=== PATIENT | female | born 1945 | race Caucasian/White ===

== ENCOUNTER 2017-12-05 16:01 | Outpatient (REF) | payer MEDICARE, MEDICAID, SELFPAY ==
[2017-12-05 17:26] LABS: Anion Gap 10.7 mmol/L (3-11); CO2 22.3 mmol/L (21.0-32.0); Calcium 8.4 mg/dL (8.5-10.1); Chloride 104 mmol/L (98-107); Estimated GFR 9.41 (mL/min/1.73m2); Glucose 285 mg/dL (70-100); Potassium 4.7 mmol/L (3.5-5.1); Sodium 137 mmol/L (136-145)
[2017-12-05 18:14] LABS: BUN 85 mg/dL (7-18); CREATININE 4.57 mg/dL (0.55-1.02)
== END 2017-12-05 16:02 ==
LOC: LBN 16:01
PROVIDERS: PCP Student in an Organized Health Care Education/Training Program; Visit Provider Family Medicine
DX: N18.9 Chronic kidney disease, unspecified (principal); E78.5 Hyperlipidemia, unspecified; E11.9 Type 2 diabetes mellitus without complications; E87.5 Hyperkalemia; I10 Essential (primary) hypertension
CPT/HCPCS: 80048

== ENCOUNTER 2017-12-12 16:09 | Outpatient (REF) | payer MEDICARE, MEDICAID, SELFPAY ==
[2017-12-12 19:10] LABS: Anion Gap 13.6 mmol/L (3-11); CO2 21.4 mmol/L (21.0-32.0); Calcium 8.3 mg/dL (8.5-10.1); Chloride 104 mmol/L (98-107); Estimated GFR 9.91 (mL/min/1.73m2); Glucose 197 mg/dL (70-100); Potassium 4.8 mmol/L (3.5-5.1); Sodium 139 mmol/L (136-145)
[2017-12-12 19:19] LABS: BUN 92 mg/dL (7-18); CREATININE 4.37 mg/dL (0.55-1.02)
== END 2017-12-12 16:10 ==
LOC: LBN 16:09
PROVIDERS: PCP Student in an Organized Health Care Education/Training Program; Visit Provider Family Medicine
DX: M62.81 Muscle weakness (generalized) (principal); N18.9 Chronic kidney disease, unspecified; E78.5 Hyperlipidemia, unspecified; E11.9 Type 2 diabetes mellitus without complications
CPT/HCPCS: 80048

== ENCOUNTER 2017-12-20 16:21 | Outpatient (REF) | payer MEDICARE, MEDICAID, SELFPAY ==
[2017-12-20 18:50] LABS: Anion Gap 11.8 mmol/L (3-11); CO2 22.2 mmol/L (21.0-32.0); Calcium 8.5 mg/dL (8.5-10.1); Chloride 104 mmol/L (98-107); Estimated GFR 10.02 (mL/min/1.73m2); Glucose 255 mg/dL (70-100); Potassium 5.2 mmol/L (3.5-5.1); Sodium 138 mmol/L (136-145)
[2017-12-20 19:45] LABS: BUN 95 mg/dL (7-18)
[2017-12-20 19:46] LABS: CREATININE 4.33 mg/dL (0.55-1.02)
== END 2017-12-20 16:22 ==
LOC: LBN 16:21
PROVIDERS: PCP Student in an Organized Health Care Education/Training Program; Visit Provider Family Medicine
DX: N18.9 Chronic kidney disease, unspecified (principal); E78.5 Hyperlipidemia, unspecified; E11.9 Type 2 diabetes mellitus without complications; E87.5 Hyperkalemia; I10 Essential (primary) hypertension; D64.9 Anemia, unspecified
CPT/HCPCS: 80048

== ENCOUNTER 2017-12-24 15:20 | Outpatient (REF) | payer MEDICARE, MEDICAID, SELFPAY ==
[2017-12-24 17:13] LABS: Calcium 8.4 mg/dL (8.5-10.1); Chloride 105 mmol/L (98-107); Glucose 299 mg/dL (70-100); Potassium 5.4 mmol/L (3.5-5.1); Sodium 137 mmol/L (136-145)
[2017-12-24 17:21] LABS: BUN 95 mg/dL (7-18)
[2017-12-24 17:22] LABS: CREATININE 4.19 mg/dL (0.55-1.02)
== END 2017-12-24 15:21 ==
LOC: LBN 15:20
PROVIDERS: PCP Student in an Organized Health Care Education/Training Program; Visit Provider Family Medicine
DX: N17.9 Acute kidney failure, unspecified (principal); E78.5 Hyperlipidemia, unspecified; E11.9 Type 2 diabetes mellitus without complications; I10 Essential (primary) hypertension
CPT/HCPCS: 80048

== ENCOUNTER 2017-12-26 16:36 | Outpatient (REF) | payer MEDICARE, MEDICAID, SELFPAY ==
[2017-12-26 17:46] LABS: Anion Gap 14.1 mmol/L (3-11); CO2 20.9 mmol/L (21.0-32.0); Calcium 8.8 mg/dL (8.5-10.1); Chloride 106 mmol/L (98-107); Estimated GFR 10.73 (mL/min/1.73m2); Glucose 171 mg/dL (70-100); Potassium 4.8 mmol/L (3.5-5.1); Sodium 141 mmol/L (136-145)
[2017-12-26 17:54] LABS: BUN 93 mg/dL (7-18); CREATININE 4.08 mg/dL (0.55-1.02)
== END 2017-12-26 16:37 ==
LOC: LBN 16:36
PROVIDERS: PCP Student in an Organized Health Care Education/Training Program; Visit Provider Family Medicine
DX: N18.9 Chronic kidney disease, unspecified (principal)
CPT/HCPCS: 80048

== ENCOUNTER 2018-01-02 16:45 | Outpatient (REF) | payer MEDICARE, MEDICAID, SELFPAY ==
[2018-01-02 19:48] LABS: Anion Gap 11.3 mmol/L (3-11); CO2 21.7 mmol/L (21.0-32.0); Calcium 8.7 mg/dL (8.5-10.1); Chloride 106 mmol/L (98-107); Estimated GFR 10.23 (mL/min/1.73m2); Glucose 236 mg/dL (70-100); Sodium 139 mmol/L (136-145)
[2018-01-02 20:01] LABS: BUN 106 mg/dL (7-18)
[2018-01-03 15:22] LABS: CREATININE 4.25 mg/dL (0.55-1.02)
== END 2018-01-02 16:46 ==
LOC: LBN 16:45
PROVIDERS: PCP Student in an Organized Health Care Education/Training Program; Visit Provider Family Medicine
DX: N18.9 Chronic kidney disease, unspecified (principal); E78.5 Hyperlipidemia, unspecified; I10 Essential (primary) hypertension; E11.9 Type 2 diabetes mellitus without complications
CPT/HCPCS: 80048

== ENCOUNTER 2018-01-09 16:50 | Outpatient (REF) | payer MEDICARE, MEDICAID, SELFPAY ==
[2018-01-09 17:44] LABS: Anion Gap 9.2 mmol/L (3-11); CO2 20.8 mmol/L (21.0-32.0); Calcium 8.5 mg/dL (8.5-10.1); Chloride 103 mmol/L (98-107); Estimated GFR 10.23 (mL/min/1.73m2); Glucose 302 mg/dL (70-100); Potassium 5.8 mmol/L (3.5-5.1); Sodium 133 mmol/L (136-145)
[2018-01-09 17:54] LABS: CREATININE 4.25 mg/dL (0.55-1.02)
[2018-01-09 17:55] LABS: BUN 104 mg/dL (7-18)
== END 2018-01-09 17:10 ==
LOC: LBN 16:50
PROVIDERS: PCP Student in an Organized Health Care Education/Training Program; Visit Provider Family Medicine
DX: N18.9 Chronic kidney disease, unspecified (principal)
CPT/HCPCS: 80048

== ENCOUNTER 2018-01-12 15:28 | Outpatient (REF) | payer MEDICARE, MEDICAID, SELFPAY ==
[2018-01-12 16:03] LABS: Potassium 5.5 mmol/L (3.5-5.1)
== END 2018-01-12 15:48 ==
LOC: LBN 15:28
PROVIDERS: PCP Student in an Organized Health Care Education/Training Program; Visit Provider Nurse Practitioner Family
DX: E87.5 Hyperkalemia (principal)
CPT/HCPCS: 84132

== ENCOUNTER 2018-01-14 14:47 | Outpatient (REF) | payer MEDICARE, MEDICAID, SELFPAY ==
[2018-01-14 16:36] LABS: Potassium 4.8 mmol/L (3.5-5.1)
== END 2018-01-14 15:07 ==
LOC: LBN 14:47
PROVIDERS: PCP Student in an Organized Health Care Education/Training Program; Visit Provider Family Medicine
DX: E11.9 Type 2 diabetes mellitus without complications (principal); N18.9 Chronic kidney disease, unspecified; E87.5 Hyperkalemia
CPT/HCPCS: 84132

== ENCOUNTER 2018-01-17 17:31 | Outpatient (REF) | payer MEDICARE, MEDICAID, SELFPAY ==
[2018-01-17 20:08] LABS: Calcium 8.4 mg/dL (8.5-10.1); Chloride 106 mmol/L (98-107); Estimated GFR 10.29 (mL/min/1.73m2); Glucose 262 mg/dL (70-100); Potassium 5.3 mmol/L (3.5-5.1); Sodium 140 mmol/L (136-145)
[2018-01-17 20:42] LABS: BUN 108 mg/dL (7-18); CREATININE 4.23 mg/dL (0.55-1.02)
== END 2018-01-17 17:51 ==
LOC: LBN 17:31
PROVIDERS: Family Medicine; PCP Student in an Organized Health Care Education/Training Program; Visit Provider Student in an Organized Health Care Education/Training Program
DX: N18.9 Chronic kidney disease, unspecified (principal); D64.9 Anemia, unspecified; E78.5 Hyperlipidemia, unspecified; I10 Essential (primary) hypertension; E87.5 Hyperkalemia; E11.9 Type 2 diabetes mellitus without complications
CPT/HCPCS: 80048

== ENCOUNTER 2018-01-20 15:19 | Outpatient (REF) | payer MEDICARE, MEDICAID, SELFPAY ==
[2018-01-20 22:29] LABS: Anion Gap 11.6 mmol/L (3-11); CO2 20.4 mmol/L (21.0-32.0); Calcium 8.1 mg/dL (8.5-10.1); Chloride 106 mmol/L (98-107); Estimated GFR 9.29 (mL/min/1.73m2); Glucose 203 mg/dL (70-100); Sodium 138 mmol/L (136-145)
[2018-01-20 22:37] LABS: BUN 109 mg/dL (7-18); CREATININE 4.62 mg/dL (0.55-1.02)
== END 2018-01-20 15:39 ==
LOC: LBN 15:19
PROVIDERS: PCP Student in an Organized Health Care Education/Training Program; Visit Provider Family Medicine
DX: D64.9 Anemia, unspecified (principal); N17.9 Acute kidney failure, unspecified; E78.5 Hyperlipidemia, unspecified; E87.5 Hyperkalemia; I10 Essential (primary) hypertension
CPT/HCPCS: 80048

== ENCOUNTER 2018-01-23 16:27 | Outpatient (REF) | payer MEDICARE, MEDICAID, SELFPAY ==
[2018-01-23 17:28] LABS: Anion Gap 11.1 mmol/L (3-11); CO2 21.9 mmol/L (21.0-32.0); Calcium 8.2 mg/dL (8.5-10.1); Chloride 104 mmol/L (98-107); Estimated GFR 9.31 (mL/min/1.73m2); Glucose 162 mg/dL (70-100); Potassium 5.1 mmol/L (3.5-5.1); Sodium 137 mmol/L (136-145)
[2018-01-23 17:32] LABS: BUN 116 mg/dL (7-18)
== END 2018-01-23 16:47 ==
LOC: LBN 16:27
PROVIDERS: PCP Student in an Organized Health Care Education/Training Program; Visit Provider Family Medicine
DX: D64.9 Anemia, unspecified (principal); N18.9 Chronic kidney disease, unspecified; E78.5 Hyperlipidemia, unspecified; E11.9 Type 2 diabetes mellitus without complications; I10 Essential (primary) hypertension
CPT/HCPCS: 80048

== ENCOUNTER 2018-01-27 16:32 | Outpatient (REF) | payer MEDICARE, MEDICAID, SELFPAY ==
[2018-01-27 17:32] LABS: Anion Gap 14.8 mmol/L (3-11); CO2 20.2 mmol/L (21.0-32.0); Calcium 8.5 mg/dL (8.5-10.1); Chloride 102 mmol/L (98-107); Estimated GFR 9.68 (mL/min/1.73m2); Glucose 335 mg/dL (70-100); Potassium 5.3 mmol/L (3.5-5.1); Sodium 137 mmol/L (136-145)
[2018-01-27 17:44] LABS: BUN 104 mg/dL (7-18); CREATININE 4.45 mg/dL (0.55-1.02)
== END 2018-01-27 16:52 ==
LOC: LBN 16:32
PROVIDERS: PCP Student in an Organized Health Care Education/Training Program; Visit Provider Family Medicine
DX: N18.9 Chronic kidney disease, unspecified (principal); D64.9 Anemia, unspecified; E11.9 Type 2 diabetes mellitus without complications; I10 Essential (primary) hypertension; E78.5 Hyperlipidemia, unspecified
CPT/HCPCS: 80048

== ENCOUNTER 2018-01-30 13:15 | Outpatient (REF) | payer MEDICARE, MEDICAID, SELFPAY ==
[2018-01-30 15:25] LABS: Potassium 5.1 mmol/L (3.5-5.1)
[2018-01-30 21:39] LABS: Calcium 8.8 mg/dL (8.5-10.1); Glucose 104 mg/dL (70-100)
[2018-01-30 21:40] LABS: BUN 99 mg/dL (7-18); CREATININE 4.27 mg/dL (0.55-1.02); Estimated GFR 10.15 (mL/min/1.73m2); Sodium 140 mmol/L (136-145)
[2018-01-30 21:41] LABS: Anion Gap 12.8 mmol/L (3-11); CO2 21.2 mmol/L (21.0-32.0); Chloride 106 mmol/L (98-107)
== END 2018-01-30 13:35 ==
LOC: LBN 13:15
PROVIDERS: PCP Student in an Organized Health Care Education/Training Program; Visit Provider Family Medicine
DX: E11.9 Type 2 diabetes mellitus without complications (principal); E78.5 Hyperlipidemia, unspecified; I10 Essential (primary) hypertension; D64.9 Anemia, unspecified; N18.9 Chronic kidney disease, unspecified
CPT/HCPCS: 80048; 84132

== ENCOUNTER 2018-02-11 12:21 | Outpatient (REF) | payer MEDICARE, MEDICAID, SELFPAY ==
[2018-02-11 13:18] LABS: Anion Gap 12.1 mmol/L (3-11); CO2 20.9 mmol/L (21.0-32.0); Calcium 8.9 mg/dL (8.5-10.1); Chloride 109 mmol/L (98-107); Estimated GFR 9.06 (mL/min/1.73m2); Glucose 109 mg/dL (70-100); Sodium 142 mmol/L (136-145)
[2018-02-11 13:24] LABS: BUN 112 mg/dL (7-18); CREATININE 4.71 mg/dL (0.55-1.02)
== END 2018-02-11 12:41 ==
LOC: LBN 12:21
PROVIDERS: PCP Student in an Organized Health Care Education/Training Program; Visit Provider Family Medicine
DX: R53.83 Other fatigue (principal); N18.9 Chronic kidney disease, unspecified
CPT/HCPCS: 80048

== ENCOUNTER 2018-02-19 07:56 | Outpatient (REF) | payer MEDICARE, MEDICAID, SELFPAY ==
[2018-02-19 12:43] LABS: Anion Gap 13.8 mmol/L (3-11); CO2 20.2 mmol/L (21.0-32.0); Calcium 8.9 mg/dL (8.5-10.1); Chloride 110 mmol/L (98-107); Estimated GFR 10.12 (mL/min/1.73m2); Glucose 90 mg/dL (70-100); Potassium 5.7 mmol/L (3.5-5.1); Sodium 144 mmol/L (136-145)
[2018-02-19 13:38] LABS: BUN 102 mg/dL (7-18)
[2018-02-19 13:39] LABS: CREATININE 4.28 mg/dL (0.55-1.02)
== END 2018-02-19 08:16 ==
LOC: LBN 07:56
PROVIDERS: PCP Student in an Organized Health Care Education/Training Program; Visit Provider Family Medicine
DX: M62.81 Muscle weakness (generalized) (principal); I25.10 Atherosclerotic heart disease of native coronary artery without angina pectoris; E78.5 Hyperlipidemia, unspecified; E11.9 Type 2 diabetes mellitus without complications; I10 Essential (primary) hypertension
CPT/HCPCS: 80048

== ENCOUNTER 2018-02-20 14:40 | Outpatient (REF) | payer MEDICARE, MEDICAID, SELFPAY ==
[2018-02-20 15:22] LABS: Potassium 5.2 mmol/L (3.5-5.1)
== END 2018-02-20 15:00 ==
LOC: LBN 14:40
PROVIDERS: PCP Student in an Organized Health Care Education/Training Program; Visit Provider Family Medicine
DX: E78.5 Hyperlipidemia, unspecified (principal); E87.5 Hyperkalemia; I10 Essential (primary) hypertension
CPT/HCPCS: 84132

== ENCOUNTER 2018-02-25 14:31 | Outpatient (REF) | payer MEDICARE, MEDICAID, SELFPAY ==
[2018-02-25 15:05] LABS: Anion Gap 12.6 mmol/L (3-11); CO2 21.4 mmol/L (21.0-32.0); Calcium 8.5 mg/dL (8.5-10.1); Chloride 106 mmol/L (98-107); Estimated GFR 10.15 (mL/min/1.73m2); Glucose 215 mg/dL (70-100); Potassium 4.9 mmol/L (3.5-5.1); Sodium 140 mmol/L (136-145)
[2018-02-25 15:11] LABS: BUN 114 mg/dL (7-18); CREATININE 4.27 mg/dL (0.55-1.02)
== END 2018-02-25 14:51 ==
LOC: LBN 14:31
PROVIDERS: PCP Student in an Organized Health Care Education/Training Program; Visit Provider Family Medicine
DX: I10 Essential (primary) hypertension (principal); E78.5 Hyperlipidemia, unspecified; E11.9 Type 2 diabetes mellitus without complications; R53.83 Other fatigue
CPT/HCPCS: 80048

== ENCOUNTER 2018-03-11 14:20 | Outpatient (REF) | payer MEDICARE, MEDICAID, SELFPAY ==
[2018-03-11 16:30] LABS: Anion Gap 11.3 mmol/L (3-11); CO2 19.7 mmol/L (21.0-32.0); Calcium 8.6 mg/dL (8.5-10.1); Chloride 106 mmol/L (98-107); Estimated GFR 9.88 (mL/min/1.73m2); Glucose 177 mg/dL (70-100); Potassium 5.6 mmol/L (3.5-5.1); Sodium 137 mmol/L (136-145)
[2018-03-11 16:32] LABS: INR 3.2 (1.0-3.5); Prothrombin Time 29.7 sec (9.3-10.8)
[2018-03-11 16:35] LABS: BUN 100 mg/dL (7-18); CREATININE 4.37 mg/dL (0.55-1.02)
== END 2018-03-11 14:40 ==
LOC: LBN 14:20
PROVIDERS: PCP Student in an Organized Health Care Education/Training Program; Visit Provider Family Medicine
DX: I48.0 Paroxysmal atrial fibrillation (principal); Z79.01 Long term (current) use of anticoagulants; E11.9 Type 2 diabetes mellitus without complications; E78.5 Hyperlipidemia, unspecified; I10 Essential (primary) hypertension
CPT/HCPCS: 80048; 85610

== ENCOUNTER 2018-03-13 11:45 | Outpatient (REF) | payer MEDICARE, MEDICAID, SELFPAY ==
[2018-03-13 13:10] LABS: Anion Gap 11.5 mmol/L (3-11); CO2 20.5 mmol/L (21.0-32.0); Calcium 8.6 mg/dL (8.5-10.1); Chloride 108 mmol/L (98-107); Estimated GFR 9.51 (mL/min/1.73m2); Glucose 212 mg/dL (70-100); Potassium 4.8 mmol/L (3.5-5.1); Sodium 140 mmol/L (136-145)
[2018-03-13 13:37] LABS: BUN 92 mg/dL (7-18); CREATININE 4.52 mg/dL (0.55-1.02)
== END 2018-03-13 12:05 ==
LOC: LBN 11:45
PROVIDERS: PCP Student in an Organized Health Care Education/Training Program; Visit Provider Family Medicine
DX: E78.5 Hyperlipidemia, unspecified (principal); E11.9 Type 2 diabetes mellitus without complications; I10 Essential (primary) hypertension; N17.9 Acute kidney failure, unspecified
CPT/HCPCS: 80048

== ENCOUNTER 2018-03-18 14:39 | Outpatient (REF) | payer MEDICARE, MEDICAID, SELFPAY ==
[2018-03-18 16:08] LABS: Prothrombin Time 76.4 sec (9.3-10.8)
[2018-03-18 16:12] LABS: INR 8.5 (1.0-3.5)
== END 2018-03-18 14:59 ==
LOC: LBN 14:39
PROVIDERS: PCP Student in an Organized Health Care Education/Training Program; Visit Provider Family Medicine
DX: I48.0 Paroxysmal atrial fibrillation (principal); Z79.01 Long term (current) use of anticoagulants
CPT/HCPCS: 85610

== ENCOUNTER 2018-03-20 19:20 | Outpatient (REF) | payer MEDICARE, MEDICAID, SELFPAY ==
[2018-03-20 20:56] LABS: INR 3.9 (1.0-3.5); Prothrombin Time 35.9 sec (9.3-10.8)
== END 2018-03-20 19:40 ==
LOC: LBN 19:20
PROVIDERS: PCP Student in an Organized Health Care Education/Training Program; Visit Provider Family Medicine
DX: I48.0 Paroxysmal atrial fibrillation (principal); Z79.01 Long term (current) use of anticoagulants
CPT/HCPCS: 85610

== ENCOUNTER 2018-03-25 17:40 | Outpatient (REF) | payer MEDICARE, MEDICAID, SELFPAY ==
[2018-03-25 18:52] LABS: INR 1.2 (1.0-3.5)
[2018-03-25 18:56] LABS: Prothrombin Time 11.3 sec (9.3-10.8)
[2018-03-25 19:32] LABS: Potassium 5.9 mmol/L (3.5-5.1)
== END 2018-03-25 18:00 ==
LOC: LBN 17:40
PROVIDERS: PCP Student in an Organized Health Care Education/Training Program; Visit Provider Family Medicine
DX: N17.9 Acute kidney failure, unspecified (principal); E87.5 Hyperkalemia; I48.91 Unspecified atrial fibrillation; Z79.01 Long term (current) use of anticoagulants
CPT/HCPCS: 84132; 85610

== ENCOUNTER 2018-03-27 08:19 | Outpatient (REF) | payer MEDICARE, MEDICAID, SELFPAY ==
[2018-03-27 08:58] LABS: Potassium 5.2 mmol/L (3.5-5.1)
== END 2018-03-27 08:39 ==
LOC: LBN 08:19
PROVIDERS: PCP Student in an Organized Health Care Education/Training Program; Visit Provider Family Medicine
DX: E87.5 Hyperkalemia (principal)
CPT/HCPCS: 84132

== ENCOUNTER 2018-04-01 16:08 | Outpatient (REF) | payer MEDICARE, MEDICAID, SELFPAY ==
[2018-04-01 16:26] LABS: Potassium 5.4 mmol/L (3.5-5.1)
== END 2018-04-01 16:28 ==
LOC: LBN 16:08
PROVIDERS: PCP Student in an Organized Health Care Education/Training Program; Visit Provider Family Medicine
DX: E87.5 Hyperkalemia (principal)
CPT/HCPCS: 84132

== ENCOUNTER 2018-04-02 14:11 | Outpatient (REF) | payer MEDICARE, MEDICAID, SELFPAY ==
[2018-04-02 14:44] LABS: INR 2.2 (1.0-3.5); Prothrombin Time 20.6 sec (9.3-10.8)
== END 2018-04-02 14:31 ==
LOC: LBN 14:11
PROVIDERS: PCP Student in an Organized Health Care Education/Training Program; Visit Provider Family Medicine
DX: I48.91 Unspecified atrial fibrillation (principal); Z79.01 Long term (current) use of anticoagulants
CPT/HCPCS: 85610

== ENCOUNTER 2018-04-04 10:19 | Outpatient (REF) | payer MEDICARE, MEDICAID, SELFPAY ==
[2018-04-04 11:50] LABS: INR 3.3 (1.0-3.5); Prothrombin Time 31.3 sec (9.3-10.8)
[2018-04-04 11:54] LABS: Potassium 4.3 mmol/L (3.5-5.1)
== END 2018-04-04 10:39 ==
LOC: LBN 10:19
PROVIDERS: PCP Student in an Organized Health Care Education/Training Program; Visit Provider Family Medicine
DX: I48.91 Unspecified atrial fibrillation (principal); Z79.01 Long term (current) use of anticoagulants; E87.5 Hyperkalemia
CPT/HCPCS: 84132; 85610

== ENCOUNTER 2018-04-11 18:37 | Outpatient (REF) | payer MEDICARE, MEDICAID, SELFPAY ==
[2018-04-11 20:16] LABS: INR 2.8 (1.0-3.5); Prothrombin Time 26.5 sec (9.3-10.8)
== END 2018-04-11 18:57 ==
LOC: LBN 18:37
PROVIDERS: PCP Student in an Organized Health Care Education/Training Program; Visit Provider Family Medicine
DX: I48.0 Paroxysmal atrial fibrillation (principal); Z79.01 Long term (current) use of anticoagulants
CPT/HCPCS: 85610

== ENCOUNTER 2018-04-14 16:41 | Outpatient (REF) | payer MEDICARE, MEDICAID, SELFPAY ==
[2018-04-14 19:01] LABS: INR 2.6 (1.0-3.5); Prothrombin Time 24.3 sec (9.3-10.8)
== END 2018-04-14 17:01 ==
LOC: LBN 16:41
PROVIDERS: PCP Student in an Organized Health Care Education/Training Program; Visit Provider Family Medicine
DX: I48.0 Paroxysmal atrial fibrillation (principal); Z79.01 Long term (current) use of anticoagulants
CPT/HCPCS: 85610

== ENCOUNTER 2018-04-17 15:21 | Outpatient (REF) | payer MEDICARE, MEDICAID, SELFPAY ==
[2018-04-17 16:41] LABS: Potassium 5.2 mmol/L (3.5-5.1)
[2018-04-17 17:34] LABS: INR 1.8 (1.0-3.5); Prothrombin Time 17.5 sec (9.3-10.8)
== END 2018-04-17 15:41 ==
LOC: LBN 15:21
PROVIDERS: PCP Student in an Organized Health Care Education/Training Program; Visit Provider Family Medicine
DX: E87.5 Hyperkalemia (principal); I48.0 Paroxysmal atrial fibrillation; Z79.01 Long term (current) use of anticoagulants
CPT/HCPCS: 84132; 85610

== ENCOUNTER 2018-04-19 12:46 | Outpatient (REF) | payer MEDICARE, MEDICAID, SELFPAY ==
[2018-04-19 13:22] LABS: INR 2.5 (1.0-3.5); Prothrombin Time 25.6 sec (9.3-11.0)
== END 2018-04-19 13:06 ==
LOC: LBN 12:46
PROVIDERS: PCP Student in an Organized Health Care Education/Training Program; Visit Provider Family Medicine
DX: I48.91 Unspecified atrial fibrillation (principal); Z79.01 Long term (current) use of anticoagulants
CPT/HCPCS: 85610

== ENCOUNTER 2018-04-20 08:19 | Outpatient (REF) | payer MEDICARE, MEDICAID, SELFPAY ==
[2018-04-20 09:20] LABS: ALT 23 U/L (12-78); AST 19 U/L (15-37); Albumin 2.9 g/dL (3.4-5.0); Alkaline Phosphatase 89 U/L (46-116); Bilirubin, Direct 0.07 mg/dL (0.00-0.20); Bilirubin, Total 0.2 mg/dL (0.2-1.0); Potassium 4.8 mmol/L (3.5-5.1); Total Protein 5.6 g/dL (6.4-8.2)
[2018-04-20 09:23] LABS: Abs Immature Grans 0.02 k/cumm (0.0-0.09); Absolute Basophil Count 0.03 k/cumm (0.0-0.2); Absolute Lymphocyte Count 1.46 k/cumm (1.2-3.4); Absolute Monocyte Count 0.77 k/cumm (0.11-0.7); Absolute Neutrophil Count 3.72 k/cumm (1.2-6.7); Basophils % 0.5; Eosinophils % 7.7; HCT 29.3 % (36.0-46.0); HGB 9.8 g/dL (12.0-15.5); Immature Grans % 0.3; Lymphocytes % 22.5; Mean Corp. HGB Concentration 33.4 g/dL (32.0-36.0); Mean Corpuscular Hemoglobin 28.5 pg (27.0-33.0); Mean Corpuscular Volume 85.2 fL (80-95); Mean Platelet Volume 10.1 fL (8.0-11.0); Monocytes % 11.8; Neutrophils % 57.2; Platelet Count 145 x1000/uL (130-400); RBC 3.44 m/cumm (4.00-5.20); RBC Distribution Width 13.5 % (11.7-14.6)
[2018-04-20 09:32] LABS: Cholesterol 163 mg/dL (50-200); HDL Cholesterol 32 mg/dL (40-60); LDL CHOLESTEROL 103 mg/dL (<100); Triglyceride 132 mg/dL (30-150)
[2018-04-21 06:18] LABS: Hemoglobin A1C 5.7 % (4.5-6.2)
== END 2018-04-20 08:39 ==
LOC: LBN 08:19
PROVIDERS: PCP Student in an Organized Health Care Education/Training Program; Visit Provider Family Medicine
DX: E11.9 Type 2 diabetes mellitus without complications (principal); N18.6 End stage renal disease
CPT/HCPCS: 80061; 80076; 83721; 83036; 84132; 85025

== ENCOUNTER 2018-04-21 17:55 | Outpatient (REF) | payer MEDICARE, MEDICAID, SELFPAY ==
[2018-04-21 19:00] LABS: INR 3.3 (1.0-3.5)
== END 2018-04-21 18:15 ==
LOC: LBN 17:55
PROVIDERS: PCP Student in an Organized Health Care Education/Training Program; Visit Provider Family Medicine
DX: I48.0 Paroxysmal atrial fibrillation (principal); Z79.01 Long term (current) use of anticoagulants
CPT/HCPCS: 85610

== ENCOUNTER 2018-04-24 15:42 | Outpatient (REF) | payer MEDICARE, MEDICAID, SELFPAY ==
[2018-04-24 16:59] LABS: Prothrombin Time 40.3 sec (9.3-11.0)
== END 2018-04-24 16:02 ==
LOC: LBN 15:42
PROVIDERS: PCP Student in an Organized Health Care Education/Training Program; Visit Provider Family Medicine
DX: I48.0 Paroxysmal atrial fibrillation (principal); Z79.01 Long term (current) use of anticoagulants; E87.5 Hyperkalemia
CPT/HCPCS: 84132; 85610

== ENCOUNTER 2018-04-27 11:01 | Outpatient (REF) | payer MEDICARE, MEDICAID, SELFPAY ==
[2018-04-27 11:21] LABS: INR 1.6 (1.0-3.5); Prothrombin Time 16.3 sec (9.3-11.0)
== END 2018-04-27 11:21 ==
LOC: LBN 11:01
PROVIDERS: PCP Student in an Organized Health Care Education/Training Program; Visit Provider Family Medicine
DX: I48.91 Unspecified atrial fibrillation (principal); Z79.01 Long term (current) use of anticoagulants
CPT/HCPCS: 36415; 85610

== ENCOUNTER 2018-04-30 11:26 | Outpatient (REF) | payer MEDICARE, MEDICAID, SELFPAY ==
[2018-04-30 12:36] LABS: INR 1.4 (1.0-3.5); Prothrombin Time 14.4 sec (9.3-11.0)
[2018-04-30 13:06] LABS: Potassium 4.7 mmol/L (3.5-5.1)
== END 2018-04-30 11:46 ==
LOC: LBN 11:26
PROVIDERS: PCP Student in an Organized Health Care Education/Training Program; Visit Provider Family Medicine
DX: I48.0 Paroxysmal atrial fibrillation (principal); Z79.01 Long term (current) use of anticoagulants; E87.5 Hyperkalemia
CPT/HCPCS: 84132; 85610

== ENCOUNTER 2018-05-02 17:17 | Outpatient (REF) | payer MEDICARE, MEDICAID, SELFPAY ==
[2018-05-02 19:15] LABS: INR 2.5 (1.0-3.5); Prothrombin Time 25.4 sec (9.3-11.0)
== END 2018-05-02 17:37 ==
LOC: LBN 17:17
PROVIDERS: PCP Student in an Organized Health Care Education/Training Program; Visit Provider Family Medicine
DX: I25.10 Atherosclerotic heart disease of native coronary artery without angina pectoris (principal); Z79.01 Long term (current) use of anticoagulants
CPT/HCPCS: 85610

== ENCOUNTER 2018-05-06 14:05 | Outpatient (REF) | payer MEDICARE, SELFPAY ==
[2018-05-06 14:55] LABS: Potassium 5.3 mmol/L (3.5-5.1)
[2018-05-06 15:28] LABS: INR 3.5 (1.0-3.5); Prothrombin Time 35.1 sec (9.3-11.0)
== END 2018-05-06 14:25 ==
LOC: LBN 14:05
PROVIDERS: PCP Student in an Organized Health Care Education/Training Program; Visit Provider Family Medicine
DX: I48.91 Unspecified atrial fibrillation (principal); Z79.01 Long term (current) use of anticoagulants; N18.6 End stage renal disease
CPT/HCPCS: 84132; 85610

== ENCOUNTER 2018-05-08 16:25 | Outpatient (REF) | payer MEDICARE, SELFPAY ==
[2018-05-08 17:09] LABS: Abs Immature Grans 0.04 k/cumm (0.0-0.09); Absolute Basophil Count 0.03 k/cumm (0.0-0.2); Absolute Eosinophil Count 0.32 k/cumm (0.0-0.7); Absolute Lymphocyte Count 1.02 k/cumm (1.2-3.4); Absolute Monocyte Count 0.78 k/cumm (0.11-0.7); Absolute Neutrophil Count 4.17 k/cumm (1.2-6.7); Basophils % 0.5; HCT 26.6 % (36.0-46.0); HGB 8.7 g/dL (12.0-15.5); Immature Grans % 0.6; Mean Corp. HGB Concentration 32.7 g/dL (32.0-36.0); Mean Corpuscular Volume 85.5 fL (80-95); Mean Platelet Volume 10.6 fL (8.0-11.0); Monocytes % 12.3; Neutrophils % 65.6; Platelet Count 131 x1000/uL (130-400); RBC 3.11 m/cumm (4.00-5.20); RBC Distribution Width 13.3 % (11.7-14.6); White Blood Cell Count 6.36 k/cumm (4.4-10.8)
[2018-05-08 17:28] LABS: INR 2.5 (0.9-1.1); Prothrombin Time 25.1 sec (9.3-11.0)
[2018-05-08 17:30] LABS: Anion Gap 9.2 mmol/L (3-11); BUN 79 mg/dL (7-18); CO2 22.8 mmol/L (21.0-32.0); Calcium 8.8 mg/dL (8.5-10.1); Chloride 104 mmol/L (98-107); Estimated GFR 9.43 (mL/min/1.73m2); Glucose 252 mg/dL (70-100); Potassium 5.5 mmol/L (3.5-5.1); Sodium 136 mmol/L (136-145)
[2018-05-08 18:13] LABS: CREATININE 4.55 mg/dL (0.55-1.02)
== END 2018-05-08 16:45 ==
LOC: LBN 16:25
PROVIDERS: PCP Student in an Organized Health Care Education/Training Program; Visit Provider Family Medicine
DX: I48.0 Paroxysmal atrial fibrillation (principal); Z79.01 Long term (current) use of anticoagulants; I25.10 Atherosclerotic heart disease of native coronary artery without angina pectoris; N18.9 Chronic kidney disease, unspecified; D64.9 Anemia, unspecified; I10 Essential (primary) hypertension; E11.9 Type 2 diabetes mellitus without complications; E78.5 Hyperlipidemia, unspecified
CPT/HCPCS: 80048; 85025; 85610

== ENCOUNTER 2018-05-13 18:26 | Outpatient (REF) | payer MEDICARE, SELFPAY ==
[2018-05-13 19:48] LABS: Potassium 5.4 mmol/L (3.5-5.1)
== END 2018-05-13 18:46 ==
LOC: LBN 18:26
PROVIDERS: PCP Student in an Organized Health Care Education/Training Program; Visit Provider Family Medicine
DX: N18.6 End stage renal disease (principal)
CPT/HCPCS: 84132

== ENCOUNTER 2018-05-13 19:32 | Outpatient (REF) | payer MEDICARE, SELFPAY ==
[2018-05-13 20:25] LABS: INR 1.2 (0.9-1.1); Prothrombin Time 11.6 sec (9.3-11.0)
== END 2018-05-13 19:52 ==
LOC: LBN 19:32
PROVIDERS: PCP Student in an Organized Health Care Education/Training Program; Visit Provider Family Medicine
DX: I48.91 Unspecified atrial fibrillation (principal); Z79.01 Long term (current) use of anticoagulants
CPT/HCPCS: 85610

== ENCOUNTER 2018-05-20 11:06 | Outpatient (REF) | payer MEDICARE, SELFPAY ==
[2018-05-20 11:58] LABS: Potassium 4.6 mmol/L (3.5-5.1)
== END 2018-05-20 11:26 ==
LOC: LBN 11:06
PROVIDERS: PCP Student in an Organized Health Care Education/Training Program; Visit Provider Family Medicine
DX: E87.5 Hyperkalemia (principal)
CPT/HCPCS: 84132

== ENCOUNTER 2018-05-27 12:26 | Outpatient (REF) | payer MEDICARE, SELFPAY ==
[2018-05-27 13:44] LABS: Potassium 4.7 mmol/L (3.5-5.1)
== END 2018-05-27 12:46 ==
LOC: LBN 12:26
PROVIDERS: PCP Student in an Organized Health Care Education/Training Program; Visit Provider Family Medicine
DX: E87.5 Hyperkalemia (principal)
CPT/HCPCS: 84132

== ENCOUNTER 2018-06-08 13:19 | Inpatient (IN) | payer MEDICARE, MEDICAID, SELFPAY ==
[2018-06-08] VITALS (59 sets, daily range): BP systolic 123–169; BP diastolic 39–101; PULSE 36–58; RESP 11–28; TEMP 36.1–36.5; O2SAT 98–100
--- NOTE | 2018-06-08 14:04 | W.ED.GENAD ---
Discharge Plan Disposition Patient Disposition: [facility] INPATIENT Condition: Stable Discharge Details Chief Complaint: AMS/LOC Clinical Impression: Altered mental state, Cystitis Reason For Visit: RACHANAEX Primary Care Provider: Cheyenne Sanchez ED Provider: Morgan Nielsen Home Meds and New Rx's Prescriptions: No Action pantoprazole 40 MG tablet,delayed release (DR/EC) 40 mg PO AM RF: 0 nystatin 15 GM cream 15 gm Topical TID RF: 0 cyanocobalamin (vitamin B-12) 2,500 MCG tablet,chewable 1,000 mcg PO DAILY RF: 0 PROVENTIL HFA 18 GM HFA.AER.AD 2 puff Inhalation Q6H PRN RF: 0 carvedilol 6.25 MG tablet 18.75 mg PO TID RF: 0 magnesium hydroxide [Milk of Magnesia] 400 MG/5 ML suspension 30 ml PO PRN RF: 0 bisacodyl [Dulcolax (bisacodyl)] 10 MG suppository 10 mg RC PRN RF: 0 Fleet Enema 133 ML enema 133 ml RC PRN RF: 0 trazodone 50 mg Tablet 50 mg PO HS RF: 0 hydroxyzine HCl 25 mg Tablet 25 mg PO HS RF: 0 losartan 50 MG tablet 50 mg PO HS RF: 0 acetaminophen 325 MG tablet 650 mg PO TID RF: 0 isosorbide mononitrate 60 MG tablet extended release 24 hr 60 mg PO BID RF: 0 magnesium oxide 400 MG tablet 400 mg PO DAILY RF: 0 amlodipine 10 MG tablet 10 mg PO DAILY RF: 0 ferrous sulfate 325 MG tablet 325 mg PO BID RF: 0 capsaicin [Trixaicin] 60 GM cream Transdermal QID RF: 0 mirtazapine 15 MG tablet 7.5 mg PO HS RF: 0 warfarin [Coumadin] 1 MG tablet 1 - 2 tab PO DIRECTED RF: 0 calcitriol 0.25 MCG capsule 0.25 mcg PO DIRECTED RF: 0 Humalog KwikPen Insulin 100 UNIT/ML insulin pen 20 unit SQ QAM RF: 0 furosemide [Lasix] 80 MG tablet 60 mg PO BID RF: 0 Medical Decision Making 73-year-old woman with a history of diabetes, cognitive changes, and hypertension chronically on warfarin [facility] with altered mentation. Onset of symptoms associated with measured hypoglycemia (110, 55, 70). Arrival, is in no distress but less interactive than at baseline according to her family. EKG significant for bradycardia which is also at a baseline rate for her.. Nonfocal exam. Labs suggestive of a cystitis.. Noncontrast head CT negative for evidence of acute intracranial hemorrhage. Mild improved alertness after receiving IV crystalloid. Treated with IV ceftriaxone. Discussed case with hospitalist, Dr. Michaud, who accepted Ms. Arnett for admission. Medical Records Medical records reviewed: Yes I reviewed the patient's medical records. Imaging Data Radiologic Study: Imaging: CT Scan (Noncontrast head CT) My impression: No acute intercranial hemorrhage Radiologist's impression: No acute infarction or hemorrhage Lab Data Lab results reviewed: Yes I reviewed the patient's lab results. Lab results narrative: Catheter urine with white cells and bacteria. Mild leukocytosis ECG Data Attestation: I personally reviewed and interpreted this ECG (s) as follows: Prior ECG tracings: available for review Interpretation: Sinus bradycardia [address] changes HPI General Mode of arrival: EMS. Date/Time Provider Initiated Documentation: 06/08/18 13:41. Limitations to Documentation: altered mental status. Information obtained by: patient, family and EMS. HPI Narrative: Natalya is a 73-year-old woman with a past medical history which includes diabetes, obesity, hypertension, CVA, chronic renal failure, cognitive communication deficits. Transported here via EMS after being found with altered mentation and associated low serum glucose level. Ms. Arnett was found to be cold and clammy with a serum glucose level of over 100. However shortly afterwards her levels were measured in the 50s and she was treated with glucagon. On EMS arrival, she had a serum glucose level of 70 and was treated with additional glucagon in route because of lack of IV access. On arrival, she is resting comfortably with no apparent distress although she is somnolent and nonverbal. Her family notes that she was in her usual state of health yesterday but that other family members who visited today noted her being noninteractive and being unable to recognize them. At baseline she has waxing and waning cognition/interaction with family Related Data Home Medications Medication Instructions Recorded Confirmed Proventil Hfa 2 puff INHALATION Q6H PRN inhaler 07/22/17 06/08/18 cyanocobalamin (vitamin B-12) 1,000 mcg PO DAILY tab.chew 07/22/17 06/08/18 nystatin 15 gm TOPICAL TID 07/22/17 06/08/18 pantoprazole 40 mg PO AM tab-cap 07/22/17 06/08/18 Humalog KwikPen Insulin 20 unit SQ QAM 07/31/17 06/08/18 acetaminophen 650 mg PO TID 07/31/17 06/08/18 amlodipine 10 mg PO DAILY 07/31/17 06/08/18 calcitriol 0.25 mcg PO DIRECTED 07/31/17 06/08/18 capsaicin [Trixaicin] TRANSDERMAL QID 07/31/17 ferrous sulfate 325 mg PO BID 07/31/17 06/08/18 isosorbide mononitrate 60 mg PO BID 07/31/17 06/08/18 losartan 50 mg PO HS 07/31/17 06/08/18 magnesium oxide 400 mg PO DAILY 07/31/17 06/08/18 mirtazapine 7.5 mg PO HS 07/31/17 06/08/18 warfarin [Coumadin] 1 - 2 tab PO DIRECTED 07/31/17 06/08/18 Fleet Enema 133 ml RC PRN enema 09/02/17 06/08/18 bisacodyl [Dulcolax (bisacodyl)] 10 mg RC PRN supp 09/02/17 06/08/18 carvedilol 18.75 mg PO TID tab-cap 09/02/17 06/08/18 magnesium hydroxide [Milk of 30 ml PO PRN ml 09/02/17 06/08/18 Magnesia] furosemide [Lasix] 60 mg PO BID 10/16/17 06/08/18 hydroxyzine HCl 25 mg PO HS 06/08/18 06/08/18 trazodone 50 mg PO HS 06/08/18 06/08/18 Allergies Allergy/AdvReac Type Severity Reaction Status Date / Time allopurinol Allergy Unverified 06/08/18 14:06 codeine Allergy Unverified 06/08/18 14:06 lisinopril Allergy Unverified 06/08/18 14:06 morphine Allergy Unverified 06/08/18 14:06 oxycodone Allergy Unverified 06/08/18 14:06 Uekcsoz-Ema-Bug Reductase Allergy Unverified 06/08/18 14:06 Inhibitor tramadol Allergy Unverified 06/08/18 14:06 General Stated Complaint: AMS/LOC HERNÁN: 2 Review of Systems Review of Systems Unobtainable due to mental status PFSH Surgical History Colonoscopy - MAC (01/23/16) EGD - MAC (01/23/16) Social History Smoking/Tobacco Use Status: Never Exam Narrative Exam Narrative: Nursing note and vital signs have been reviewed and noted. GENERAL: Somnolent, opens eyes to command, no acute distress, well -hydrated, well-nourished HEENT: atraumatic/normocephalic, PERRLA, EOMI, conjunctiva clear, external ears/canals normal, nasal mucosa normal NECK: supple, no mass, normal lymphadenopathy, no thyromegaly CARDIOVASCULAR: RRR, no murmurs, nl pulses, no edema PULMONARY: nl effort, no audible wheezing or stridor, nl breath sounds with no focal deficit. ABDOMEN: soft, no apparent tenderness, non-distended, no mass, no organomegaly EXTREMITY: normal muscle tone, all joints with FROM, no deformity or tenderness NUERO: Alert, not interactive/nonverbal, left upper extremity held in flexed, internally rotated position (baseline according to family) PSYCH: Unable to assess, Course Vital Signs Temperature 97.0 F L 06/08/18 13:31 Pulse 44 L 06/08/18 13:31 Respiratory Rate 14 06/08/18 13:31 Blood Pressure 125/91 H 06/08/18 13:31 Pulse Oximetry 100 06/08/18 13:31 Temperature 97.0 F L 06/08/18 13:31 Temperature Source Temporal Artery Scan 06/08/18 13:31 Pulse 44 L 06/08/18 13:31 Respiratory Rate 14 06/08/18 13:31 Blood Pressure 125/91 H 06/08/18 13:31 Blood Pressure Position Sitting 06/08/18 13:31 Pulse Oximetry 100 06/08/18 13:31 Oxygen Delivery Method Room Air 06/08/18 13:31 Oxygen Flow Rate 0 06/08/18 13:31 Pain Level 0 06/08/18 13:31
--- NOTE | 2018-06-08 14:07 | ED.GENADUL_ITS ---
Discharge Plan Disposition Patient Disposition: [facility] INPATIENT Condition: Stable Discharge Details Chief Complaint: AMS/LOC Clinical Impression: Altered mental state, Cystitis Reason For Visit: RACHANAEX Primary Care Provider: Cheyenne Sanchez ED Provider: Morgan Nielsen Home Meds and New Rx's Prescriptions: No Action pantoprazole 40 MG tablet,delayed release (DR/EC) 40 mg PO AM RF: 0 nystatin 15 GM cream 15 gm Topical TID RF: 0 cyanocobalamin (vitamin B-12) 2,500 MCG tablet,chewable 1,000 mcg PO DAILY RF: 0 PROVENTIL HFA 18 GM HFA.AER.AD 2 puff Inhalation Q6H PRN RF: 0 carvedilol 6.25 MG tablet 18.75 mg PO TID RF: 0 magnesium hydroxide [Milk of Magnesia] 400 MG/5 ML suspension 30 ml PO PRN RF: 0 bisacodyl [Dulcolax (bisacodyl)] 10 MG suppository 10 mg RC PRN RF: 0 Fleet Enema 133 ML enema 133 ml RC PRN RF: 0 trazodone 50 mg Tablet 50 mg PO HS RF: 0 hydroxyzine HCl 25 mg Tablet 25 mg PO HS RF: 0 losartan 50 MG tablet 50 mg PO HS RF: 0 acetaminophen 325 MG tablet 650 mg PO TID RF: 0 isosorbide mononitrate 60 MG tablet extended release 24 hr 60 mg PO BID RF: 0 magnesium oxide 400 MG tablet 400 mg PO DAILY RF: 0 amlodipine 10 MG tablet 10 mg PO DAILY RF: 0 ferrous sulfate 325 MG tablet 325 mg PO BID RF: 0 capsaicin [Trixaicin] 60 GM cream Transdermal QID RF: 0 mirtazapine 15 MG tablet 7.5 mg PO HS RF: 0 warfarin [Coumadin] 1 MG tablet 1 - 2 tab PO DIRECTED RF: 0 calcitriol 0.25 MCG capsule 0.25 mcg PO DIRECTED RF: 0 Humalog KwikPen Insulin 100 UNIT/ML insulin pen 20 unit SQ QAM RF: 0 furosemide [Lasix] 80 MG tablet 60 mg PO BID RF: 0 Medical Decision Making 73-year-old woman with a history of diabetes, cognitive changes, and hypertension chronically on warfarin presents from her residential with altered mentation. Onset of symptoms associated with measured hypoglycemia (110, 55, 70). Arrival, is in no distress but less interactive than at baseline according to her family. EKG significant for bradycardia which is also at a baseline rate for her.. Nonfocal exam. Labs suggestive of a cystitis.. Noncontrast head CT negative for evidence of acute intracranial hemorrhage. Mild improved alertness after receiving IV crystalloid. Treated with IV ceftriaxone. Discussed case with hospitalist, Dr. Michaud, who accepted Ms. Arnett for admission. Medical Records Medical records reviewed: Yes I reviewed the patient's medical records. Imaging Data Radiologic Study: Imaging: CT Scan (Noncontrast head CT) My impression: No acute intercranial hemorrhage Radiologist's impression: No acute infarction or hemorrhage Lab Data Lab results reviewed: Yes I reviewed the patient's lab results. Lab results narrative: Catheter urine with white cells and bacteria. Mild leukocytosis ECG Data Attestation: I personally reviewed and interpreted this ECG (s) as follows: Prior ECG tracings: available for review Interpretation: Sinus bradycardia [address] changes HPI General Mode of arrival: EMS . Date/Time Provider Initiated Documentation: 06/08/18 13:41 . Limitations to Documentation: altered mental status . Information obtained by: patient, family and EMS . HPI Narrative: Natalya is a 73-year-old woman with a past medical history which includes diabetes, obesity, hypertension, CVA, chronic renal failure, cognitive communication deficits. Transported here via EMS after being found with altered mentation and associated low serum glucose level. Ms. Arnett was found to be cold and clammy with a serum glucose level of over 100. However shortly afterwards her levels were measured in the 50s and she was treated with glucagon. On EMS arrival, she had a serum glucose level of 70 and was treated with additional glucagon in route because of lack of IV access. On arrival, she is resting comfortably with no apparent distress although she is somnolent and nonverbal. Her family notes that she was in her usual state of health yesterday but that other family members who visited today noted her being noninteractive and being unable to recognize them. At baseline she has waxing and waning cognition/interaction with family Related Data Home Medications Medication Instructions Recorded Confirmed Proventil Hfa 2 puff INHALATION Q6H PRN inhaler 07/22/17 06/08/18 cyanocobalamin (vitamin B-12) 1,000 mcg PO DAILY tab.chew 07/22/17 06/08/18 nystatin 15 gm TOPICAL TID 07/22/17 06/08/18 pantoprazole 40 mg PO AM tab-cap 07/22/17 06/08/18 Humalog KwikPen Insulin 20 unit SQ QAM 07/31/17 06/08/18 acetaminophen 650 mg PO TID 07/31/17 06/08/18 amlodipine 10 mg PO DAILY 07/31/17 06/08/18 calcitriol 0.25 mcg PO DIRECTED 07/31/17 06/08/18 capsaicin [Trixaicin] TRANSDERMAL QID 07/31/17 ferrous sulfate 325 mg PO BID 07/31/17 06/08/18 isosorbide mononitrate 60 mg PO BID 07/31/17 06/08/18 losartan 50 mg PO HS 07/31/17 06/08/18 magnesium oxide 400 mg PO DAILY 07/31/17 06/08/18 mirtazapine 7.5 mg PO HS 07/31/17 06/08/18 warfarin [Coumadin] 1 - 2 tab PO DIRECTED 07/31/17 06/08/18 Fleet Enema 133 ml RC PRN enema 09/02/17 06/08/18 bisacodyl [Dulcolax (bisacodyl)] 10 mg RC PRN supp 09/02/17 06/08/18 carvedilol 18.75 mg PO TID tab-cap 09/02/17 06/08/18 magnesium hydroxide [Milk of 30 ml PO PRN ml 09/02/17 06/08/18 Magnesia] furosemide [Lasix] 60 mg PO BID 10/16/17 06/08/18 hydroxyzine HCl 25 mg PO HS 06/08/18 06/08/18 trazodone 50 mg PO HS 06/08/18 06/08/18 Allergies Allergy/AdvReac Type Severity Reaction Status Date / Time allopurinol Allergy Unverified 06/08/18 14:06 codeine Allergy Unverified 06/08/18 14:06 lisinopril Allergy Unverified 06/08/18 14:06 morphine Allergy Unverified 06/08/18 14:06 oxycodone Allergy Unverified 06/08/18 14:06 Jarouqi-Icx-Zun Reductase Allergy Unverified 06/08/18 14:06 Inhibitor tramadol Allergy Unverified 06/08/18 14:06 General Stated Complaint: AMS/LOC HERNÁN: 2 Review of Systems Review of Systems Unobtainable due to mental status PFSH Surgical History Colonoscopy - MAC (01/23/16) EGD - MAC (01/23/16) Social History Smoking/Tobacco Use Status: Never Exam Narrative Exam Narrative: Nursing note and vital signs have been reviewed and noted. GENERAL: Somnolent, opens eyes to command, no acute distress, well -hydrated, well-nourished HEENT: atraumatic/normocephalic, PERRLA, EOMI, conjunctiva clear, external ears/canals normal, nasal mucosa normal NECK: supple, no mass, normal lymphadenopathy, no thyromegaly CARDIOVASCULAR: RRR, no murmurs, nl pulses, no edema PULMONARY: nl effort, no audible wheezing or stridor, nl breath sounds with no focal deficit. ABDOMEN: soft, no apparent tenderness, non-distended, no mass, no organomegaly EXTREMITY: normal muscle tone, all joints with FROM, no deformity or tenderness NUERO: Alert, not interactive/nonverbal, left upper extremity held in flexed, internally rotated position (baseline according to family) PSYCH: Unable to assess, Course Vital Signs Temperature 97.0 F L 06/08/18 13:31 Pulse 44 L 06/08/18 13:31 Respiratory Rate 14 06/08/18 13:31 Blood Pressure 125/91 H 06/08/18 13:31 Pulse Oximetry 100 06/08/18 13:31 Temperature 97.0 F L 06/08/18 13:31 Temperature Source Temporal Artery Scan 06/08/18 13:31 Pulse 44 L 06/08/18 13:31 Respiratory Rate 14 06/08/18 13:31 Blood Pressure 125/91 H 06/08/18 13:31 Blood Pressure Position Sitting 06/08/18 13:31 Pulse Oximetry 100 06/08/18 13:31 Oxygen Delivery Method Room Air 06/08/18 13:31 Oxygen Flow Rate 0 06/08/18 13:31 Pain Level 0 06/08/18 13:31
[2018-06-08 14:12] LABS: Abs Immature Grans 0.05 k/cumm (0.0-0.09); Absolute Eosinophil Count 0.31 k/cumm (0.0-0.7); Absolute Lymphocyte Count 0.99 k/cumm (1.2-3.4); Absolute Monocyte Count 0.96 k/cumm (0.11-0.7); Absolute Neutrophil Count 11.36 k/cumm (1.2-6.7); Basophils % 0.1; Bilirubin Negative (Negative); Blood Trace-intact (Negative); Clarity Cloudy; Eosinophils % 2.3; Glucose Negative (Negative); HCT 31.9 % (36.0-46.0); HGB 10.5 g/dL (12.0-15.5); Immature Grans % 0.4; Ketones Negative (Negative); Leukocyte Esterase Moderate (Negative); Lymphocytes % 7.2; Mean Corp. HGB Concentration 32.9 g/dL (32.0-36.0); Mean Corpuscular Hemoglobin 28.2 pg (27.0-33.0); Mean Corpuscular Volume 85.5 fL (80-95); Nitrite Negative (Negative); Platelet Count 165 x1000/uL (130-400); RBC 3.73 m/cumm (4.00-5.20); RBC Distribution Width 14.9 % (11.7-14.6); Urobilinogen 0.2 EU/dL (Up TO 0.2); White Blood Cell Count 13.69 k/cumm (4.4-10.8)
[2018-06-08 14:13] LABS: Absolute Basophil Count 0.01 k/cumm (0.0-0.2)
[2018-06-08 14:17] LABS: Lactate-non-spesis 1.5 mmol/l (0.6-1.4)
[2018-06-08 14:26] LABS: Epithelial Cells Few HPF (Negative); Other Cells Rare Renal (Negative); RBC Negative (0-2); WBC >50 HPF (0-5)
[2018-06-08] MEDS: Normal Saline Flush 10 ML SYR IVP ×2 (14:26→15:55)
[2018-06-08 14:27] LABS: Bacteria Many HPF (Negative); C & S Indicated? Yes; Casts Negative LPF (Negative); Crystals Negative HPF (Negative); Mucus Negative (Negative)
[2018-06-08] MEDS: Normal Saline 1,000 ML 500 ML IV (14:27)
[2018-06-08 14:37] LABS: ALT 16 U/L (12-78); AST 14 U/L (15-37); Albumin 2.9 g/dL (3.4-5.0); Alkaline Phosphatase 92 U/L (46-116); Anion Gap 9.5 mmol/L (3-11); Bilirubin, Total 0.3 mg/dL (0.2-1.0); CO2 24.5 mmol/L (21.0-32.0); Chloride 106 mmol/L (98-107); Glucose 93 mg/dL (70-100); Magnesium 2.1 mg/dL (1.8-2.4); Potassium 5.1 mmol/L (3.5-5.1); Sodium 140 mmol/L (136-145); Total Protein 6.8 g/dL (6.4-8.2)
[2018-06-08 14:53] LABS: BUN 88 mg/dL (7-18)
[2018-06-08 14:54] LABS: CREATININE 4.65 mg/dL (0.55-1.02)
[2018-06-08 16:26] LABS: INR 2.4 (0.9-1.1)
--- NOTE | 2018-06-08 16:39 | DI.CT_ITS ---
SYMPTOM/DIAGNOSIS: ALTERED MENTATION, ON WARFARIN NONCONTRAST HEAD CT: Comparison is made with 06 October 2017. No intracranial hemorrhage, mass or infarct is seen. There is no evidence of skull fracture. There is mild atrophy. The ventricles are within normal limits in size. There are patchy areas of decreased attenuation in the white matter, consistent with small vessel disease. The sinuses and mastoid air cells appear clear where visualized. IMPRESSION: Atrophy and mild small vessel changes. No acute abnormality is seen.
--- NOTE | 2018-06-08 17:02 | DI.VRAD_ITS ---
EXAM: CT Head Without Contrast EXAM DATE/TIME: 06/08/2018 4:12 PM CLINICAL HISTORY: 73 years old, female; Signs and symptoms; Altered mental status/memory loss; Other: N/a; Patient HX: Altered mentation on warfarin TECHNIQUE: Axial computed tomography images of the head/brain without contrast. All CT scans at this facility use at least one of these dose optimization techniques: automated exposure control; mA and/or kV adjustment per patient size (includes targeted exams where dose is matched to clinical indication); or iterative reconstruction. Coronal and sagittal reformatted images were created and reviewed. COMPARISON: CT HEAD WITHOUT STROKE PROTOCOL 10/16/2017 12:41 PM FINDINGS: Brain: Normal. No hemorrhage. No significant white matter disease. No edema. Ventricles: There is moderate diffuse involutional change with commensurate ventriculomegaly. Bones/joints: Unremarkable. No acute fracture. Sinuses: Visualized sinuses are unremarkable. No acute sinusitis. Mastoid air cells: Visualized mastoid air cells are unremarkable. No mastoid effusion. Soft tissues: Unremarkable. IMPRESSION: There is moderate diffuse involutional change with commensurate ventriculomegaly. No acute infarction is seen and there is no evidence of intracranial hemorrhage in this patient with reported warfarin treatment. Dictated and Authenticated by: Sung Posada MD. Ordering:THOMAS Mora MD
--- NOTE | 2018-06-08 18:57 | W.PM.HP.N ---
Date of service: 06/08/18 Time of Service: 19:02 Assessment and Plan (1) Altered mental status: Current visit: Yes Status: Acute Potentially in setting of UTI in elderly woman with potential underlying dementia (Per verbal history - family not present). CT Head without acute intracranial abnormalities, and electrolytes appear reasonable and at baseline. Will initiate antibiotic therapy for UTI. Also given abnormal EKG and history of CAD will rule out with serial Cardiac Biomarkers. Reevaluate based on mental status in the morning. (2) UTI (urinary tract infection): Current visit: Yes Status: Acute Review of culture results with pansensitive E.Coli in July of 2017. Initiate on IV Ceftriaxone, check blood cultures, and await Urine Culture results. (3) Diabetes mellitus: Current visit: Yes Status: Chronic Report of 'hypoglycemia', with reported blood sugars of 100 and 70. Hold standing insulin, initiate on very low rate D5 1/2NS, check blood sugars and maintain on sliding scale coverage as needed. (4) CAD (coronary artery disease): Current visit: Yes Status: Chronic Abnormal EKG with sinus bradycardia and TWI in I/AVL, II,III,AVF, and V3 through V6. These changes were NOT present on EKG from October of 2017, but present and unchanged in July of 2017. Patient has a history of CABG approximately 10 years ago. Check troponin now and in the morning. Continue current BB with tight hold orders as patient is bradycardic. Not on ASA or statin therapy at baseline. (5) Abnormal EKG: Current visit: Yes Status: Chronic As above. (6) CHF (congestive heart failure): Current visit: Yes Status: Suspected No record of an ECHO here, but prior history of elevated BNP, enlarged heart on imaging, and on diuretic therapy. Currently on very low rate fluids as above for hypoglycemia. Continue furosemide, check daily weights, and monitor volume status closely (7) PAF (paroxysmal atrial fibrillation): Current visit: Yes Status: Chronic Currently in sinus, and with significant bradycardia. Relatively high dose Carvedilol at baseline. Unsure if this present due to difficult to control heart rates at baseline, but will continue with very strict parameters to hold for a low HR and SBP. Continue anticoagulation with coumadin and check daily INR. (8) DVT prophylaxis: Current visit: Yes Status: Acute On therapeutic anticoagulation with coumadin. Check daily INR. Also on oral PPI therapy for GI prophylaxis. (9) Advance directive discussed with patient: Current visit: Yes Status: Deleted (10) Advance directive on file: Current visit: Yes Status: Acute DNR/DNI History of Present Illness Chief Complaint: Altered Mental Status Narrative: 73 year old female [facility], with a past medical history significant for recurrent UTIs, presents to [facility] Emergency Department with noted altered mental status. Mrs. Arnett has past history reportedly of PAF on AC with coumadin, CAD s/p CABG, DM, CKD Stage V, HTN, and dyslipidemia. She is a resident at [facility]. Other history includes HTN, dyslipidemia, anemia of chronic disease, obesity, suspected JEFF, reactive airway disease, GERD, and diabetic neuropathy. There is also a component of dementia per discussion with ED attending, not noted on her prior history. She was noted to have an altered mental status at the nursing facility, with noted 'hypoglycemia' - however, her blood sugar was apparently in the low 100's when checked, then 70 when repeated by EMS. She was administered Glucagon. Work-up in the ED showed evidence of a mild leukocytosis, an abnormal urinalysis indicative of likely UTI, and minimal elevation in lactate. Her renal function was found to be at baseline, and her INR was therapeutic. CT scan of her head was negative for any acute findings, including evidence of any Intracranial Hemorrhage. Given these findings she was referred for admission for further evaluation and treatment. Review of Systems Review of Systems Unobtainable due to mental status PFS Surgical History Colonoscopy - MAC (01/23/16) EGD - MAC (01/23/16) Social History Smoking/Tobacco Use Status: Never Meds Home Medications Medication Instructions Recorded Confirmed Type Proventil Hfa 2 puff INHALATION Q6H PRN inhaler 07/22/17 06/08/18 History cyanocobalamin (vitamin B-12) 1,000 mcg PO DAILY tab.chew 07/22/17 06/08/18 History nystatin 15 gm TOPICAL TID 07/22/17 06/08/18 History pantoprazole 40 mg PO AM tab-cap 07/22/17 06/08/18 History Humalog KwikPen Insulin 20 unit SQ QAM 07/31/17 06/08/18 History acetaminophen 650 mg PO TID 07/31/17 06/08/18 History amlodipine 10 mg PO DAILY 07/31/17 06/08/18 History calcitriol 0.25 mcg PO DIRECTED 07/31/17 06/08/18 History capsaicin [Trixaicin] TRANSDERMAL QID 07/31/17 History ferrous sulfate 325 mg PO BID 07/31/17 06/08/18 History isosorbide mononitrate 60 mg PO BID 07/31/17 06/08/18 History losartan 50 mg PO HS 07/31/17 06/08/18 History magnesium oxide 400 mg PO DAILY 07/31/17 06/08/18 History mirtazapine 7.5 mg PO HS 07/31/17 06/08/18 History warfarin [Coumadin] 1 - 2 tab PO DIRECTED 07/31/17 06/08/18 History Fleet Enema 133 ml RC PRN enema 09/02/17 06/08/18 History bisacodyl [Dulcolax (bisacodyl)] 10 mg RC PRN supp 09/02/17 06/08/18 History carvedilol 18.75 mg PO TID tab-cap 09/02/17 06/08/18 History magnesium hydroxide [Milk of 30 ml PO PRN ml 09/02/17 06/08/18 History Magnesia] furosemide [Lasix] 60 mg PO BID 10/16/17 06/08/18 History hydroxyzine HCl 25 mg PO HS 06/08/18 06/08/18 History trazodone 50 mg PO HS 06/08/18 06/08/18 History Allergies Allergy/AdvReac Type Severity Reaction Status Date / Time allopurinol Allergy Unverified 06/08/18 14:06 codeine Allergy Unverified 06/08/18 14:06 lisinopril Allergy Unverified 06/08/18 14:06 morphine Allergy Unverified 06/08/18 14:06 oxycodone Allergy Unverified 06/08/18 14:06 Vgrjsmh-Isa-Goi Reductase Allergy Unverified 06/08/18 14:06 Inhibitor tramadol Allergy Unverified 06/08/18 14:06 Exam Narrative Exam Narrative: GEN: Appears comfortable. Is arousable but nonverbal. NAD. NECK: Supple CV: Regular and bradycardic. No overt rubs, murmurs, or gallops. PULM: CTAB on limited anterior and lateral exam. ABD: +BS, soft, nondisted, obese in contour. No evidence of pain on palpation. Neurologic: Limited due to patient's mental status. Is moving all 4 extremities without any focal deficits. No facial droop. Results Labs : 06/08/18 14:01 06/08/18 14:01 Laboratory Results - last 24 hr 06/08/18 06/08/18 06/08/18 14:01 14:01 14:01 WBC 13.69 H RBC 3.73 L Hgb 10.5 L Hct 31.9 L MCV 85.5 MCH 28.2 MCHC 32.9 RDW 14.9 H Plt Count 165 MPV 10.0 Immature Gran % 0.4 Neutrophils % 83.0 Lymphocytes % 7.2 Monocytes % 7.0 Eosinophils % 2.3 Basophils % 0.1 Absolute Neutrophils 11.36 H Absolute Lymphocytes 0.99 L Absolute Monocytes 0.96 H Absolute Eosinophils 0.31 Absolute Basophils 0.01 PT INR Sodium 140 Potassium 5.1 Chloride 106 Carbon Dioxide 24.5 Anion Gap 9.5 BUN 88 H* Creatinine 4.65 H* Estimated GFR/1.73 m2 9.20 Glucose 93 Lactate 1.5 H Calcium 9.0 Magnesium 2.1 Total Bilirubin 0.3 AST 14 L ALT 16 Alkaline Phosphatase 92 Total Protein 6.8 Albumin 2.9 L Urine Color Urine Clarity Urine pH Ur Specific [place] Urine Protein Urine Ketones Urine Blood Urine Nitrite Urine Bilirubin Urine Urobilinogen Ur Leukocyte Esterase Urine RBC Urine WBC Ur Epithelial Cells Urine Crystals Urine Bacteria Urine Casts Urine Mucus Urine Other Ur Culture Indicated? Urine Glucose 06/08/18 06/08/18 14:01 14:01 WBC RBC Hgb Hct MCV MCH MCHC RDW Plt Count MPV Immature Gran % Neutrophils % Lymphocytes % Monocytes % Eosinophils % Basophils % Absolute Neutrophils Absolute Lymphocytes Absolute Monocytes Absolute Eosinophils Absolute Basophils PT 24.0 H INR 2.4 H Sodium Potassium Chloride Carbon Dioxide Anion Gap BUN Creatinine Estimated GFR/1.73 m2 Glucose Lactate Calcium Magnesium Total Bilirubin AST ALT Alkaline Phosphatase Total Protein Albumin Urine Color Yellow Urine Clarity Cloudy Urine pH 7.0 Ur Specific [place] 1.020 Urine Protein >=300 H Urine Ketones Negative Urine Blood Trace-intact H Urine Nitrite Negative Urine Bilirubin Negative Urine Urobilinogen 0.2 Ur Leukocyte Esterase Moderate H Urine RBC Negative Urine WBC >50 Ur Epithelial Cells Few Urine Crystals Negative Urine Bacteria Many Urine Casts Negative Urine Mucus Negative Urine Other Rare renal Ur Culture Indicated? Yes Urine Glucose Negative Last Vital Signs Temp 36.1 C L 06/08/18 18:39 Pulse 48 L 06/08/18 18:47 Resp 18 06/08/18 18:47 BP 148/39 H 06/08/18 18:47 Pulse Ox 100 06/08/18 18:47
--- NOTE | 2018-06-08 19:17 | HPE_ITS ---
Date of service: 06/08/18 Time of Service: 19:02 Assessment and Plan (1) Altered mental status: Current visit: Yes Status: Acute Potentially in setting of UTI in elderly woman with potential underlying dementia (Per verbal history - family not present). CT Head without acute intracranial abnormalities, and electrolytes appear reasonable and at baseline. Will initiate antibiotic therapy for UTI. Also given abnormal EKG and history of CAD will rule out with serial Cardiac Biomarkers. Reevaluate based on mental status in the morning. (2) UTI (urinary tract infection): Current visit: Yes Status: Acute Review of culture results with pansensitive E.Coli in July of 2017. Initiate on IV Ceftriaxone, check blood cultures, and await Urine Culture results. (3) Diabetes mellitus: Current visit: Yes Status: Chronic Report of 'hypoglycemia', with reported blood sugars of 100 and 70. Hold standing insulin, initiate on very low rate D5 1/2NS, check blood sugars and maintain on sliding scale coverage as needed. (4) CAD (coronary artery disease): Current visit: Yes Status: Chronic Abnormal EKG with sinus bradycardia and TWI in I/AVL, II,III,AVF, and V3 through V6. These changes were NOT present on EKG from October of 2017, but present and unchanged in July of 2017. Patient has a history of CABG approximately 10 years ago. Check troponin now and in the morning. Continue current BB with tight hold orders as patient is bradycardic. Not on ASA or statin therapy at baseline. (5) Abnormal EKG: Current visit: Yes Status: Chronic As above. (6) CHF (congestive heart failure): Current visit: Yes Status: Suspected No record of an ECHO here, but prior history of elevated BNP, enlarged heart on imaging, and on diuretic therapy. Currently on very low rate fluids as above for hypoglycemia. Continue furosemide, check daily weights, and monitor volume status closely (7) PAF (paroxysmal atrial fibrillation): Current visit: Yes Status: Chronic Currently in sinus, and with significant bradycardia. Relatively high dose Carvedilol at baseline. Unsure if this present due to difficult to control heart rates at baseline, but will continue with very strict parameters to hold for a low HR and SBP. Continue anticoagulation with coumadin and check daily INR. (8) DVT prophylaxis: Current visit: Yes Status: Acute On therapeutic anticoagulation with coumadin. Check daily INR. Also on oral PPI therapy for GI prophylaxis. (9) Advance directive discussed with patient: Current visit: Yes Status: Deleted (10) Advance directive on file: Current visit: Yes Status: Acute DNR/DNI History of Present Illness Chief Complaint: Altered Mental Status Narrative: 73 [facility] old female resident [facility], with a past medical history significant for recurrent UTIs, presents to [facility] Emergency Department with noted altered mental status. Mrs. Arnett has past history reportedly of PAF on AC with coumadin, CAD s/p CABG, DM, CKD Stage V, HTN, and dyslipidemia. She is a resident at [facility]. Other history includes HTN, dyslipidemia, anemia of chronic disease, obesity, suspected JEFF, reactive airway disease, GERD, and diabetic neuropathy. There is also a component of dementia per discussion with ED attending, not noted on her prior history. She was noted to have an altered ment al status at the nursing facility, with noted 'hypoglycemia' - however, her blood sugar was apparently in the low 100's when checked, then 70 when repeated by EMS. She was administered Glucagon. Work-up in the ED showed evidence of a mild leukocytosis, an abnormal urinalysis indicative of likely UTI, and minimal elevation in lactate. Her renal function was found to be at baseline, and her INR was therapeutic. CT scan of her head was negative for any acute findings, including evidence of any Intracranial Hemorrhage. Given these findings she was referred for admission for further evaluation and treatment. Review of Systems Review of Systems Unobtainable due to mental status [facility] Surgical History Colonoscopy - MAC (01/23/16) EGD - MAC (01/23/16) Social History Smoking/Tobacco Use Status: Never Meds Home Medications Medication Instructions Recorded Confirmed Type Proventil Hfa 2 puff INHALATION Q6H PRN inhaler 07/22/17 06/08/18 History cyanocobalamin (vitamin B-12) 1,000 mcg PO DAILY tab.chew 07/22/17 06/08/18 Hi story nystatin 15 gm TOPICAL TID 07/22/17 06/08/18 History pantoprazole 40 mg PO AM tab-cap 07/22/17 06/08/18 History Humalog KwikPen Insulin 20 unit SQ QAM 07/31/17 06/08/18 History acetaminophen 650 mg PO TID 07/31/17 06/08/18 History amlodipine 10 mg PO DAILY 07/31/17 06/08/18 History calcitriol 0.25 mcg PO DIRECTED 07/31/17 06/08/18 History capsaicin [Trixaicin] TRANSDERMAL QID 07/31/17 History ferrous sulfate 325 mg PO BID 07/31/17 06/08/18 History isosorbide mononitrate 60 mg PO BID 07/31/17 06/08/18 History losartan 50 mg PO HS 07/31/17 06/08/18 History magnesium oxide 400 mg PO DAILY 07/31/17 06/08/18 History mirtazapine 7.5 mg PO HS 07/31/17 06/08/18 History warfarin [Coumadin] 1 - 2 tab PO DIRECTED 07/31/17 06/08/18 History Fleet Enema 133 ml RC PRN enema 09/02/17 06/08/18 History bisacodyl [Dulcolax (bisacodyl)] 10 mg RC PRN supp 09/02/17 06/08/18 History carvedilol 18.75 mg PO TID tab-cap 09/02/17 06/08/18 History magnesium hydroxide [Milk of 30 ml PO PRN ml 09/02/17 06/08/18 History Magnesia] furosemide [Lasix] 60 mg PO BID 10/16/17 06/08/18 History hydroxyzine HCl 25 mg PO HS 06/08/18 06/08/18 History trazodone 50 mg PO HS 06/08/18 06/08/18 History Allergies Allergy/AdvReac Type Severity Reaction Status Date / Time allopurinol Allergy Unverified 06/08/18 14:06 codeine Allergy Unverified 06/08/18 14:06 lisinopril Allergy Unverified 06/08/18 14:06 morphine Allergy Unverified 06/08/18 14:06 oxycodone Allergy Unverified 06/08/18 14:06 Llarvlm-Syp-Lqy Reductase Allergy Unverified 06/08/18 14:06 Inhibitor tramadol Allergy Unverified 06/08/18 14:06 Exam Narrative Exam Narrative: GEN: Appears comfortable. Is arousable but nonverbal. NAD. NECK: Supple CV: Regular and bradycardic. No overt rubs, murmurs, or gallops. PULM: CTAB on limited anterior and lateral exam. ABD: +BS, soft, nondisted, obese in contour. No evidence of pain on palpation. Neurologic: Limited due to patient's mental status. Is moving all 4 extremities without any focal deficits. No facial droop. Results Labs : 06/08/18 14:01 06/08/18 14:01 Laboratory Results - last 24 hr 06/08/18 06/08/18 06/08/18 14:01 14:01 14:01 WBC 13.69 H RBC 3.73 L Hgb 10.5 L Hct 31.9 L MCV 85.5 MCH 28.2 MCHC 32.9 RDW 14.9 H Plt Count 165 MPV 10.0 Immature Gran % 0.4 Neutrophils % 83.0 Lymphocytes % 7.2 Monocytes % 7.0 Eosinophils % 2.3 Basophils % 0.1 Absolute Neutrophils 11.36 H Absolute Lymphocytes 0.99 L Absolute Monocytes 0.96 H Absolute Eosinophils 0.31 Absolute Basophils 0.01 PT INR Sodium 140 Potassium 5.1 Chloride 106 Carbon Dioxide 24.5 Anion Gap 9.5 BUN 88 H* Creatinine 4.65 H* Estimated GFR/1.73 m2 9.20 Glucose 93 Lactate 1.5 H Calcium 9.0 Magnesium 2.1 Total Bilirubin 0.3 AST 14 L ALT 16 Alkaline Phosphatase 92 Total Protein 6.8 Albumin 2.9 L Urine Color Urine Clarity Urine pH Ur Specific [place] Urine Protein Urine Ketones Urine Blood Urine Nitrite Urine Bilirubin Urine Urobilinogen Ur Leukocyte Esterase Urine RBC Urine WBC Ur Epithelial Cells Urine Crystals Urine Bacteria Urine Casts Urine Mucus Urine Other Ur Culture Indicated? Urine Glucose 06/08/18 06/08/18 14:01 14:01 WBC RBC Hgb Hct MCV MCH MCHC RDW Plt Count MPV Immature Gran % Neutrophils % Lymphocytes % Monocytes % Eosinophils % Basophils % Absolute Neutrophils Absolute Lymphocytes Absolute Monocytes Absolute Eosinophils Absolute Basophils PT 24.0 H INR 2.4 H Sodium Potassium Chloride Carbon Dioxide Anion Gap BUN Creatinine Estimated GFR/1.73 m2 Glucose Lactate Calcium Magnesium Total Bilirubin AST ALT Alkaline Phosphatase Total Protein Albumin Urine Color Yellow Urine Clarity Cloudy Urine pH 7.0 Ur Specific [place] 1.020 Urine Protein >=300 H Urine Ketones Negative Urine Blood Trace-intact H Urine Nitrite Negative Urine Bilirubin Negative Urine Urobilinogen 0.2 Ur Leukocyte Esterase Moderate H Urine RBC Negative Urine WBC >50 Ur Epithelial Cells Few Urine Crystals Negative Urine Bacteria Many Urine Casts Negative Urine Mucus Negative Urine Other Rare renal Ur Culture Indicated? Yes Urine Glucose Negative Last Vital Signs Temp 36.1 C L 06/08/18 18:39 Pulse 48 L 06/08/18 18:47 Resp 18 06/08/18 18:47 BP 148/39 H 06/08/18 18:47 Pulse Ox 100 06/08/18 18:47
[2018-06-08] MEDS: Dextrose 50%-Water 25 GM/50 ML SYR IVP (19:55)
[2018-06-08] MEDS: DEXTROSE 5%-0.45% SALINE 1,000 ML 30 ML IV (20:25)
[2018-06-08] MEDS: Losartan 50 MG TAB PO (21:59)
[2018-06-08] MEDS: Ferrous Sulfate 325 MG TAB PO (22:00)
[2018-06-08] MEDS: traZODone 50 MG TAB PO (22:00)
[2018-06-08] MEDS: hydrOXYzine HCL 25 MG TAB PO (22:00)
[2018-06-08] MEDS: Mirtazapine 15 MG TAB 7.5 MG PO (22:02)
[2018-06-08] MEDS: Carvedilol 6.25 MG TAB 18.75 MG PO (22:10)
[2018-06-08] MEDS: Isosorbide Mononitrate 60 MG TABCR PO (22:10)
[2018-06-09 00:16] LABS: Troponin I 0.03 ng/mL (0.00-0.06)
[2018-06-09 05:45] VITALS: BP 133/45; PULSE 52; RESP 28; TEMP 36.9; O2SAT 98
[2018-06-09 07:24] LABS: Lactate-non-spesis 1.2 mmol/l (0.6-1.4)
[2018-06-09 07:29] LABS: Abs Immature Grans 0.03 k/cumm (0.0-0.09); Absolute Basophil Count 0.02 k/cumm (0.0-0.2); Absolute Eosinophil Count 0.32 k/cumm (0.0-0.7); Absolute Lymphocyte Count 1.41 k/cumm (1.2-3.4); Absolute Monocyte Count 0.92 k/cumm (0.11-0.7); Absolute Neutrophil Count 5.58 k/cumm (1.2-6.7); Basophils % 0.2; Eosinophils % 3.9; HCT 26.3 % (36.0-46.0); HGB 8.5 g/dL (12.0-15.5); Immature Grans % 0.4; Mean Corp. HGB Concentration 32.3 g/dL (32.0-36.0); Mean Corpuscular Hemoglobin 28.1 pg (27.0-33.0); Mean Corpuscular Volume 86.8 fL (80-95); Mean Platelet Volume 9.7 fL (8.0-11.0); Monocytes % 11.1; Neutrophils % 67.4; Platelet Count 145 x1000/uL (130-400); RBC 3.03 m/cumm (4.00-5.20); RBC Distribution Width 14.7 % (11.7-14.6); White Blood Cell Count 8.28 k/cumm (4.4-10.8)
[2018-06-09 07:39] LABS: INR 2.6 (0.9-1.1); Prothrombin Time 26.7 sec (9.3-11.0)
[2018-06-09 07:47] VITALS: BP 137/52; PULSE 58; RESP 20; TEMP 36.9; O2SAT 97
[2018-06-09 07:52] LABS: Anion Gap 11.2 mmol/L (3-11); BUN 79 mg/dL (7-18); CO2 22.8 mmol/L (21.0-32.0); Calcium 8.4 mg/dL (8.5-10.1); Chloride 107 mmol/L (98-107); Estimated GFR 10.21 (mL/min/1.73m2); Glucose 97 mg/dL (70-100); Potassium 4.8 mmol/L (3.5-5.1); Sodium 141 mmol/L (136-145); Troponin I 0.03 ng/mL (0.00-0.06)
[2018-06-09 07:54] LABS: CREATININE 4.25 mg/dL (0.55-1.02)
[2018-06-09] MEDS: Nystatin CREAM 15 GM TUBE TP ×2 (08:40→12:48)
[2018-06-09] MEDS: amLODIPine 10 MG TAB PO (10:26)
[2018-06-09] MEDS: Isosorbide Mononitrate 60 MG TABCR PO (10:26)
[2018-06-09] MEDS: Pantoprazole 40 MG TABCR PO (10:26)
[2018-06-09] MEDS: Furosemide 20 MG TAB 60 MG PO (10:28)
[2018-06-09] MEDS: Carvedilol 6.25 MG TAB 18.75 MG PO ×2 (10:29→20:26)
[2018-06-09] MEDS: Cyanocobalamin 500 MCG TAB 1000 MCG PO (10:29)
[2018-06-09] MEDS: Ferrous Sulfate 325 MG TAB PO (10:30)
[2018-06-09] MEDS: Calcitriol 0.25 MCG CAP PO (10:30)
[2018-06-09] MEDS: Magnesium Oxide 400 MG TAB PO (10:31)
--- NOTE | 2018-06-09 10:36 | PDOC.CMIN ---
- If Service Date Differs Date of service: 06/09/18 Time of Service: 10:36 Care Management Initial Assess REASON FOR HOSPITALIZATION:: AMS, UTI PAST MEDICAL HISTORY/PAST SURGICAL HISTORY:: GERD, diabetic neuropathy, vitamin B12 deficiency, JEFF, reactive airway disease, weakness, obesity, depression, anemia of chronic disease, dyslipidemia, hypertension, coronary artery disease, CHF, diabetes, paroxysmal atrial fibrillation, CKD. Per family she has dementia PREVIOUS FUNCTIONAL STATUS/SOCIAL/FAMILY SUPPORTS:: [facility] she has been there for the past year. Daughter reports she has a history of falls even while at Rehab. She is wheelchair per family she does not ambulate. Natalya has four children three live local her daughter Jeanette assist with all medical decisions. CURRENT FUNCTIONAL STATUS:: Natalya is lying in bed she is unable to engaged with CM she does occasional say yes or no to questions. Her daughter Vandana is present and her sister Yu both able to answer questions. ADVANCE DIRECTIVES:: On file at [facility] Has patient been provided with information about the portal?: No Did the patient sign up for the portal?: No CODE STATUS:: DNR/DNI INSURANCE COVERAGE / FINANCIAL ISSUES:: Medicaid, Medicare CURRENT HOME/COMMUNITY SERVICES/EQUIPMENT:: [facility], wheelchair bound, Palliative care (). PRIMARY CARE PHYSICIAN:: Cheyenne Sanchez POTENTIAL DISCHARGE NEEDS:: Return to [facility] when she is ready for discharge. PATIENT/FAMILY EDUCATION NEEDS:: Discharge education, limitations, follow-up plan of care, discharge plan to [facility] when ready. ANTICIPATED BARRIERS TO DISCHARGE:: None identified at this time. TRANSPORTATION:: Via wheelchair van provided by [facility] PLAN:: Polys receiving IV antibiotics, should be discharged if medically ready per provider. Consults include speech, PT, and palliative care. CM to continue to provide support discharge planning disposition.
--- NOTE | 2018-06-09 10:45 | DI.RAD_ITS ---
SYMPTOM/DIAGNOSIS: PATIENT WITH ALTERED MENTAL STATUS, ? ASPIRATION. PORTABLE CHEST: Comparison is made with 16 October 2017. The heart is enlarged. The patient is status post CABG and coronary artery stents. Sternal wires are seen. Evaluation of the lungs is limited by poor pulmonary inflation and respiratory motion. Mildly increased pulmonary densities and interstitial markings are seen. The findings could represent mild CHF or superimposed pneumonia and chronic interstitial changes could also be present. Clinical correlation is recommended.
--- NOTE | 2018-06-09 10:51 | NUR.NOTE ---
Nursing Note:06/09/18 @ 0830-refused all meds, food and drink. Very insistant. Will retry later.
--- NOTE | 2018-06-09 11:09 | PT.INNT ---
Date of service: 06/09/18 Time of Service: 11:09 PT Notes 06/09/18 PT referral was received for Natalya this morning. Attempted consultation, although patient was unable to remain alert for participation in PT evaluation. She was difficult to rouse, then only able to maintain eyes open for 5-10 second intervals. She was not able to verbally respond to questions, nor was she able to follow single step commands. Will hold for this morning, and return for second attempt at evaluation. Kelly Oscar, PT, DPT [facility]
--- NOTE | 2018-06-09 11:10 | OT.INNT ---
Date of service: 06/09/18 Time of Service: 11:10 Occupational Therapy Notes 06/09/18 OT consult was received and pts chart was reviewed. Attempted to consult with pt and pt was not able to verbally acknowledge that OT was present in the room. Pt made visual contact for only 5 second intervals at this time. Due to pt to be unable to be alert for OT evaluation, OT will plan to follow up with pt tomorrow. Jocelyn Torres OTR/[facility]
--- NOTE | 2018-06-09 11:39 | W.SPEECHNOTE ---
Date of service: 06/09/18 Time of Service: 11:30 Speech Therapy Visit Note Note: Attempted to see pt for swallow eval as ordered by Dr. Aguilar today. Pt unable to maintain sufficient altertness/wakefulness to participate in eval. Discussed case with Dr. Aguilar. Nothing p. o. will be offered to pt while in this somnolent condition. I will check back in tomorrow to see if pt is able to participate in eval at that point.
[2018-06-09] MEDS: Acetaminophen 325 MG TAB 650 MG PO (14:23)
--- NOTE | 2018-06-09 15:23 | W.INDIABCONS ---
Date of service: 06/09/18 Time of Service: 15:23 Diabetes Inpatient Consult DESCRIPTION/ASSESSMENT: Appreciate diabetes consult for Natalya Arnett who is hospitalized with CAD, UTI and renal concerns. BMI 37 A1c 5.7 Blood sugars are at goal of less than 180 fasting and before lunch. She has an elevated blood sugar daily and for the past 2 days has most blood sugars above 180 receiving D5. H&P indicates hypoglycemia but it isn't apparent during this visit. She receives insulin correction at the sensitive level. She is eating 0-50% of her offered meals. Home medication regimen at [facility] is 20u Novolog in the AM. She is considering hospice care per Provider report. INTERVENTION: It appears Ms. Arnett has elevated blood sugars possibly secondary to D5 administration. Her home insulin regimen is unusual and she may benefit from the same dose of long acting insulin instead of the high dose of fast acting insulin if elevated blood sugars persist. No self management support indicated at this time. PLAN: Follow blood sugars. Suggest discontinuing D5 if blood sugars remain elevated. Time Spent in Nutritional Counseling and Treatment: patient not seen
[2018-06-09 16:00] VITALS: BP 137/37; PULSE 50; RESP 20; TEMP 37.3; O2SAT 97
--- NOTE | 2018-06-09 16:04 | IN_ITS ---
Date of service: 06/09/18 Time of Service: 14:20 PT Notes Inpatient Physical Therapy Evaluation Date: 06/09/18 Referring Doctor: Dr. Colleen Aguilar PT Orders: PT CONSULT: eval and treat Precautions: Contact, fall Patient Profile/Admitting Diagnosis: Patient admitted from [facility] and [facility] due to altered mental status. She is found in the ER to have a UTI, and has been treated with antibiotics. 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 According to staff there, she transfers Via Alessandra lift to the wheelchair. She is a 2 person assist for bed mobility and is dependent for ADLs and feeding. Equipment Owned/DME: Residing in long-term care facility with all equipment needs met Subjective: Natalya is unable to provide subjective history, but responds with yes and no answers to direct questions. When asked if she's able to stand for transfer, she responds yes. When asked if staff helps her with a lift, she responds no. This is in contrast to [facility] staff reports that patient does not assist with transfer. Objective: General Observation: Resting in bed with IV in RUE, supplemental O2 via nasal cannula. Mental Status: Alert. Unable to follow single step commands for isolated movements. Unreliable history with single-word answers Pain: Patient reports pain, and when questions, uses her right hand to reference her right thigh, which she scratches vigorously throughout session. ROM: *Assessed passively only Right Upper Extremity: Shoulder flexion to 95 degrees, with patient resisting movements beyond that. She is able to actively reach to approximately 60 degrees for single repetition. She is able to fully open and close right hand. Resists elbow motions, although functionally demonstrates flexion from 30 degrees to 100 degrees. Left Upper Extremity: Patient demonstrates significant tone in the left upper extremity. She rests in a partially flexed admitting interviewer position of the left hand, and demonstrates significant flexor tone with attempts to passively open. Elbow motion is position rigidly at 100 degrees of flexion, with attempts at passive motion met with significant tone. Right Lower Extremity: Hip flexion to 100 degrees. Knee motion 0-100 degrees. Ankle dorsiflexion to neutral position. Left Lower Extremity: Hip flexion to 100 degrees. Knee motion 0-100 degrees. Ankle dorsiflexion to -5. Strength: Unable to assess. Provided single step commands in supine position (i.e. lift your leg), with patient demonstrating poorly coordinated and seemingly random movements of the lower extremity. Bed Mobility/Transfers: Rolling: Max assist of 2 Supine to sit: Unable Sit to stand: Unable Gait: Unable Balance: Static Sitting: Unable Dynamic Sitting: Unable Static Standing: Unable Dynamic Standing: Unable Special Tests: Mobility Limitations Standardized Measure [facility] 6 clicks Basic Mobility Inpatient Short Form: Raw Score: 7 standardized Score: 26.42 CMS Score: 92% Informed Consent/Education: Patient instructed in purpose of PT consult and plan of care. Assessment: Patient is a 73 year old female referred to physical therapy services with the diagnosis of evaluate and treat. Patient presents with severe mobility deficits related to her multiple medical issues. She is a long- term resident at [facility] and [facility], and per their description, she is at her baseline level of function. She is being managed acutely for altered mental status due to UTI, however given her severe mobility deficits at baseline and presentation at baseline level of function today, she is not a candidate for skilled PT intervention in acute care setting. During her stay, she should remain transfer via Alessandra lift, and max assist for bed mobility. She currently demonstrates the following impairment level findings: 1. Decreased upper extremity and lower extremity strength 2. Decreased cognition, rendering patient unable to follow simple commands 3. Flexor tone left upper extremity Impairments are contributing to the following functional limitations: 1. Dependent for bed mobility 2. Dependent for transfers 3. Dependent for all ADLs [facility] score 92% deficit. Patient is assessed as High [id number] complexity based on the following: History: Chronically ill 73-year-old female, who is a long-term resident at [facility] and [facility]. She has severe mobility deficits at baseline, which do not appear to be affected by her acute illness. She is currently being managed in acute care for altered mental status with UTI, and the presence of underlying dementia, diabetes with stage V CKD, CAD, CHF, A. 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 Examination: Functional limitations as above (dependent for all self-care and mobility) Presentation: Unstable due to ongoing medical issues Decision Making: High complexity Plan of Care/Treatment Plan: Patient is not appropriate for PT intervention in acute care setting as mobility is at baseline level of function. DISCHARGE RECOMMENDATIONS: Return to [facility] and rehab for ongoing care TREATMENT CODE/TIME: 25 minutes ([id number]) Kelly Oscar, PT, DPT [facility]
--- NOTE | 2018-06-09 16:14 | PGE_ITS ---
Date of Service Date of service: 06/09/18 Time of Service: 16:07 Assessment and Plan (1) Toxic metabolic encephalopathy: Current visit: Yes Status: Acute Multifactorial, due to UTI, HCAP, Uremia, hypoglycemia. Continue rocephin; I added vancomycin to cover HCAP. Pt failed swallow eval today due to her mental status - reattempt again tomorrow. Palliative care is consulted for further discussion of goals of care as the family does not want HD and uremia is unlikely to correct itself at this point. (2) HCAP (healthcare-associated pneumonia): Current visit: Yes Status: Acute Vancomycin/rocephin. WBC is already better. (3) UTI (urinary tract infection): Current visit: Yes Status: Acute Urine C&S with GNR >100,000 CFU Continue rocephin (vancomycin added) (4) Hypoglycemia: Current visit: Yes Status: Acute Likely due to acute infection in addition to Poor PO intake. Continue D5 fluids and monitor for hypoglycemia Required D50 overnight. (5) PAF (paroxysmal atrial fibrillation): Current visit: Yes Status: Chronic Hold anticoagulation for now (may need a PEG tube, ?goals of care) (6) CKD (chronic kidney disease) stage 5, GFR less than 15 ml/min: Current visit: Yes Status: Chronic Palliative care consult (7) CHF (congestive heart failure): Current visit: Yes Status: Suspected Clinically, not fluid overloaded. Continue gentle D5 fluids and monitor respiratory status. Largely related to kidney failure. (8) CAD (coronary artery disease): Current visit: Yes Status: Chronic No ACS on this admission (9) Hypertension: Current visit: Yes Status: Chronic Hold BP meds - NPO (10) Dyslipidemia: Current visit: Yes Status: Chronic As above (11) GERD (gastroesophageal reflux disease): Current visit: Yes Status: Chronic PPI IV (12) DVT prophylaxis: Current visit: Yes Status: Acute Therapeutic on coumadin (13) Discharge planning issues: Current visit: Yes Status: Acute DNR/DNI Palliative care consulted Subjective Interval history since last seen: Patient remains lethargic, arousable, unable to sustain her mental status enough to participate with speech eval. She was recommended to be in NPO status. She did wake up with me after a sternal rub, enough to answer that she was not in pain, having shortness of breath, dizziness, or nausea. She did not know where she was. She thanked me when I explained to her that she had a UTI. Exam Narrative Exam Narrative: General: A&Ox1, lethargic, arousable, answering basic questions, falls asleep easily HEENT: EOMI, MMM Heart: RRR, +RODNEY Lungs: CTAB GI: abdomen soft, nontender, nondistended Extremities: no e/c/c BLE's Objective Objective Clinical Data: Abnormal lab results 06/08/18 06/09/18 06/09/18 Range/Units 14:01 07:10 07:10 RBC (4.00-5.20) m/cumm Hgb (12.0-15.5) g/dL Hct (36.0-46.0) % RDW (11.7-14.6) % Absolute Monocytes (0.11-0.7) k/cumm PT 24.0 H 26.7 H (9.3-11.0) sec INR 2.4 H 2.6 H (0.9-1.1) Anion Gap 11.2 H (3-11) mmol/L BUN 79 H (7-18) mg/dL Creatinine 4.25 H* (0.55-1.02) mg/dL Calcium 8.4 L (8.5-10.1) mg/dL 06/09/18 Range/Units 07:10 RBC 3.03 L (4.00-5.20) m/cumm Hgb 8.5 L (12.0-15.5) g/dL Hct 26.3 L (36.0-46.0) % RDW 14.7 H (11.7-14.6) % Absolute Monocytes 0.92 H (0.11-0.7) k/cumm PT (9.3-11.0) sec INR (0.9-1.1) Anion Gap (3-11) mmol/L BUN (7-18) mg/dL Creatinine (0.55-1.02) mg/dL Calcium (8.5-10.1) mg/dL Vital Signs Temperature 36.9 C 06/09/18 07:47 Temperature Source Tympanic 06/09/18 07:47 Pulse 58 L 06/09/18 07:47 Pulse Rhythm Regular 06/09/18 08:10 Pulse 46 L 06/08/18 18:47 Respiratory Rate 20 06/09/18 07:47 Respiratory Effort Non-Labored 06/09/18 08:10 Respiratory Depth Normal 06/09/18 08:10 Respiratory Pattern Normal 06/09/18 08:10 Blood Pressure 137/52 L 06/09/18 07:47 Blood Pressure Mean 68 06/08/18 18:47 Blood Pressure Position Sitting 06/08/18 13:31 Pulse Oximetry 97 06/09/18 07:47 Oxygen Delivery Method Nasal Cannula 06/09/18 07:47 Oxygen Flow Rate 2 06/09/18 07:47 Pain Level 0 06/08/18 18:39 Comment 06/08/18 19:47 Intake & Output 06/08/18 06/09/18 06/09/18 23:59 11:59 23:59 Intake Total 1430 / 1430 1201 / 1201 Balance 1430 / 1430 1201 / 1201 Weight 222 kg 99 kg Intake: IV 1130 / 1130 471 / 471 Oral 300 / 300 730 / 730 Other: Urine Color Yellow Urine Odor Foul Comment moderate amount of urine in diaper. x1 Stool Size Smear Stool Characteristics Soft Brown Voiding Methods Diaper Diaper Diaper Incontinent Incontinent Incontinent Laboratory Results WBC 8.28 k/cumm (4.4-10.8) D 06/09/18 07:10 RBC 3.03 m/cumm (4.00-5.20) L 06/09/18 07:10 Hgb 8.5 g/dL (12.0-15.5) L 06/09/18 07:10 Hct 26.3 % (36.0-46.0) L 06/09/18 07:10 MCV 86.8 fL (80-95) 06/09/18 07:10 MCH 28.1 pg (27.0-33.0) 06/09/18 07:10 MCHC 32.3 g/dL (32.0-36.0) 06/09/18 07:10 RDW 14.7 % (11.7-14.6) H 06/09/18 07:10 Plt Count 145 x1000/uL (130-400) 06/09/18 07:10 MPV 9.7 fL (8.0-11.0) 06/09/18 07:10 Immature Gran % 0.4 06/09/18 07:10 Neutrophils % 67.4 06/09/18 07:10 Lymphocytes % 17.0 06/09/18 07:10 Monocytes % 11.1 06/09/18 07:10 Eosinophils % 3.9 06/09/18 07:10 Basophils % 0.2 06/09/18 07:10 Absolute Neutrophils 5.58 k/cumm (1.2-6.7) 06/09/18 07:10 Absolute Lymphocytes 1.41 k/cumm (1.2-3.4) 06/09/18 07:10 Absolute Monocytes 0.92 k/cumm (0.11-0.7) H 06/09/18 07:10 Absolute Eosinophils 0.32 k/cumm (0.0-0.7) 06/09/18 07:10 Absolute Basophils 0.02 k/cumm (0.0-0.2) 06/09/18 07:10 PT 26.7 sec (9.3-11.0) H 06/09/18 07:10 INR 2.6 (0.9-1.1) H 06/09/18 07:10 Sodium 141 mmol/L (136-145) 06/09/18 07:10 Potassium 4.8 mmol/L (3.5-5.1) 06/09/18 07:10 Chloride 107 mmol/L (98-107) 06/09/18 07:10 Carbon Dioxide 22.8 mmol/L (21.0-32.0) 06/09/18 07:10 Anion Gap 11.2 mmol/L (3-11) H 06/09/18 07:10 BUN 79 mg/dL (7-18) H 06/09/18 07:10 Creatinine 4.25 mg/dL (0.55-1.02) H* 06/09/18 07:10 Estimated GFR/1.73 m2 10.21 (mL/min/1.73m2) 06/09/18 07:10 Glucose 97 mg/dL (70-100) 06/09/18 07:10 Lactate 1.2 mmol/l (0.6-1.4) 06/09/18 07:10 Calcium 8.4 mg/dL (8.5-10.1) L 06/09/18 07:10 Magnesium 2.1 mg/dL (1.8-2.4) 06/08/18 14:01 Total Bilirubin 0.3 mg/dL (0.2-1.0) 06/08/18 14:01 AST 14 U/L (15-37) L 06/08/18 14:01 ALT 16 U/L (12-78) 06/08/18 14:01 Alkaline Phosphatase 92 U/L (46-116) 06/08/18 14:01 Troponin I 0.03 ng/mL (0.00-0.06) 06/09/18 07:10 Total Protein 6.8 g/dL (6.4-8.2) 06/08/18 14:01 Albumin 2.9 g/dL (3.4-5.0) L 06/08/18 14:01 Urine Color Yellow (Yellow) 06/08/18 14:01 Urine Clarity Cloudy 06/08/18 14:01 Urine pH 7.0 (5-8) 06/08/18 14:01 Ur Specific [place] 1.020 (1.005-1.025) 06/08/18 14:01 Urine Protein >=300 mg/dL (Negative) H 06/08/18 14:01 Urine Ketones Negative mg/dL (Negative) 06/08/18 14:01 Urine Blood Trace-intact (Negative) H 06/08/18 14:01 Urine Nitrite Negative (Negative) 06/08/18 14:01 Urine Bilirubin Negative (Negative) 06/08/18 14:01 Urine Urobilinogen 0.2 EU/dL (Up TO 0.2) 06/08/18 14:01 Ur Leukocyte Esterase Moderate (Negative) H 06/08/18 14:01 Urine RBC Negative (0-2) 06/08/18 14:01 Urine WBC >50 HPF (0-5) 06/08/18 14:01 Ur Epithelial Cells Few HPF (Negative) 06/08/18 14:01 Urine Crystals Negative HPF (Negative) 06/08/18 14:01 Urine Bacteria Many HPF (Negative) 06/08/18 14:01 Urine Casts Negative LPF (Negative) 06/08/18 14:01 Urine Mucus Negative (Negative) 06/08/18 14:01 Urine Other Rare renal (Negative) 06/08/18 14:01 Ur Culture Indicated? Yes 06/08/18 14:01 Urine Glucose Negative mg/dL (Negative) 06/08/18 14:01 CXR: Evaluation of the lungs is limited by poor pulmonary inflation and respiratory motion. Mildly increased pulmonary densities and interstitial markings are seen. The findings could represent mild CHF or superimposed pneumonia and chronic interstitial changes could also be present. Clinical correlation is recommended.
[2018-06-09] MEDS: Insulin Aspart 300 UNITS/3 ML PEN SC (18:31)
[2018-06-09] MEDS: Haloperidol 5 MG/ML VIAL 2 MG IM (20:47)
[2018-06-09 23:08] VITALS: BP 148/73; PULSE 56; RESP 19; TEMP 37; O2SAT 98
[2018-06-10] MEDS: DEXTROSE 5%-0.45% SALINE 1,000 ML 30 ML IV (06:41)
[2018-06-10 07:19] LABS: Abs Immature Grans 0.02 k/cumm (0.0-0.09); Absolute Basophil Count 0.02 k/cumm (0.0-0.2); Absolute Lymphocyte Count 1.29 k/cumm (1.2-3.4); Absolute Monocyte Count 0.83 k/cumm (0.11-0.7); Absolute Neutrophil Count 5.28 k/cumm (1.2-6.7); Basophils % 0.3; Eosinophils % 5.1; HCT 26.9 % (36.0-46.0); HGB 8.5 g/dL (12.0-15.5); Immature Grans % 0.3; Lymphocytes % 16.5; Mean Corp. HGB Concentration 31.6 g/dL (32.0-36.0); Mean Corpuscular Hemoglobin 27.3 pg (27.0-33.0); Mean Corpuscular Volume 86.5 fL (80-95); Mean Platelet Volume 10.4 fL (8.0-11.0); Monocytes % 10.6; Neutrophils % 67.2; Platelet Count 135 x1000/uL (130-400); RBC 3.11 m/cumm (4.00-5.20); RBC Distribution Width 14.6 % (11.7-14.6); White Blood Cell Count 7.84 k/cumm (4.4-10.8)
[2018-06-10 07:36] LABS: Prothrombin Time 19.7 sec (9.3-11.0)
[2018-06-10 07:39] LABS: Anion Gap 11.3 mmol/L (3-11); CO2 20.7 mmol/L (21.0-32.0); Calcium 8.8 mg/dL (8.5-10.1); Chloride 107 mmol/L (98-107); Estimated GFR 10.23 (mL/min/1.73m2); Glucose 153 mg/dL (70-100); Magnesium 2.1 mg/dL (1.8-2.4); Sodium 139 mmol/L (136-145)
[2018-06-10 07:40] VITALS: BP 115/56; PULSE 56; RESP 20; TEMP 36.6; O2SAT 98
[2018-06-10 07:43] LABS: BUN 83 mg/dL (7-18); CREATININE 4.24 mg/dL (0.55-1.02)
[2018-06-10] MEDS: Nystatin CREAM 15 GM TUBE TP ×3 (08:35→21:50)
[2018-06-10] MEDS: Normal Saline Flush 10 ML SYR IVP (08:35)
[2018-06-10] MEDS: Pantoprazole 40 MG VIAL IVP (08:35)
[2018-06-10] MEDS: Insulin Aspart 300 UNITS/3 ML PEN SC ×3 (08:36→17:39)
[2018-06-10] MEDS: Acetaminophen 325 MG TAB 650 MG PO ×2 (08:59→13:48)
[2018-06-10] MEDS: Carvedilol 6.25 MG TAB 18.75 MG PO ×2 (08:59→21:15)
--- NOTE | 2018-06-10 09:31 | PHARADMIT ---
Admission Pharmacy Clinical Review altered mental status, UTI Code Status DNR/DNI Current Weight 99.2 kg Renally Cleared and Narrow Therapeutic Index Meds Crcl ~13.3 mL/min using adjusted body weight -acetaminophen recommended Q6H for GFR 10-50 mL/min -mirtazapine: decreased clearance in moderate/severe renal impairment; use with caution -trazodone: use with caution QTc Value / Action Taken QTc 407 BP Control, Fever BP 115/56 afebrile Electrolytes reviewed within normal limits DVT Prophylaxis pt takes warfarin at home, not currently ordered Opiate Usage / Scheduled Bowel Regimen Ordered no/prn Plt/SCr for Heparin / Enoxaparin plt 135 SCr 4.24 INR for Warfarin INR 2.0 H/H stable, WBC/Bands h/h 8.5/26.9 wbc 7.84 Antibiotic appropriateness ceftriaxone and vanco for UTI and HCAP Cultures and Sensitivities blood cultures no growth @24H urine culture grew gram negative rods MRSA screen positive Surgical ABX d/c within 24 hr n/a DM control / Insulin Dosing BG 153 sliding scale aspart Heart Failure (Check EF%) (ALIVIA's, B-Block, Diuretics) amlodipine, carvedilol, losartan, IV to PO Switch n/a Home Meds Reviewed -carvedilol may diminish the bronchodilatory effects of albuterol -separate admin of magnesium hydroxide from bisacodyl and ferrous sulfate -calcitrol may increase the serum concentration of magnesium Home Meds Not Ordered capsaicin, furosemide, hydroxyzine, insulin lispro, magnesium hydroxide, fleet enema, warfarin Comments -lots of PO meds on hold due to failed swallow eval yesterday, swallow eval today. watch for restart of PO meds -palliative consul today
[2018-06-10] MEDS: Hydrocortisone 1% CR 30 GM TUBE TP ×2 (10:50→20:24)
--- NOTE | 2018-06-10 11:20 | OT.INIE ---
Occupational Therapy Notes Inpatient Occupational Therapy Evaluation Date: 06/10/18 Referring Doctor:Colleen Aguilar MD OT Orders: Eval and Treat Precautions: Contact, fall precautions PATIENT PROFILE/ADMITTING DIAGNOSIS: Pt is a 73 year old female who was Patient admitted from [facility] due to altered mental status. She was found to have a UTI, and has been treated with antibiotics per the ER. 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 Social History/Home Situation: Pt resides at the [facility] according to staff there, she transfers Via Alessandra lift to the wheelchair. She is a 2 person assist for bed mobility and is dependent for ADLs and feeding. Pt is unable to verbalize how much (A) she is provided at the [facility]. Equipment owned/DME: Residing in long-term care facility with all equipment needs met SUBJECTIVE: Natalya is unable to provide subjective history, but responds with yes,no and more answers to direct questions. When OT arrived she did state yes for OT consult. OBJECTIVE: General Observation: IV (R) UE, increased tone in (L) UE no AROM/PROM able to be performed. Mental Status: Alert was able to follow multi step commands if eye contact was made. Pain: no c/o pain, OT did ask pt who stated no ROM: RUE Within functional limits able to reach behind her head, to opposite shoulder and down towards her legs. L UE significant tone noted, OT was unable to passively move (L) UE at todays session due to increase tone production. STRENGTH: Unable to test as pt was able to lift her (R) UE but did not understand OT's instructions. SENSATION: OT would touch pts (R) UE and ask pt if she could feel OT and she would report yes, when OT asked pt for (L) UE she would say yes and no no for the hand and lower forearm and yes for upper arm near shoulder. FUNCTIONAL MOBILITY/ADLS: BATHING Sitting in bed Bathing UE Able to wash bottom half of face with wash cloth and water (I) with verbal and tactile cues indicating hand and face. Pt was also able to (I) wash her (L) UE with her (R) arm if OT provided tactile touch to pts (R) arm then (L) stating wash please EATING Sitting in bed with (R) arm supported on pillow per nursing report. Nursing removed board on pts (R) UE covering IV indicating that this did not have to go on at this time. Pts breakfast was brought in and nursing reported that previously she was max (A) for eating as pt was unable to perform. Nursing did state that it was ok for pt to eat. OT started by handing the fork to pt she demonstrated (I) with bringing fork to mouth. Then OT put food on pts fork and she was able to bring food to her mouth (I) and chew/swallow. Pt also was able to bring finger food to her mouth (I) with supervision for small bites. Next pt demonstrated increased (I) in performing the stabbing of the fork into the food with translation to her mouth. When OT provided pt the fork or the spoon she was able to pick which one she wanted and get her own food with food on her table on her lap. When taking a drink she demonstrated increased (I) with grasping the handle and bringing the container to her mouth with min (A) for the straw. OT provided min-mod vc throughout. BALANCE: Static sitting Good Dynamic Sitting Fair SPECIAL TESTS: Daily Activity Limitations Standardized Measure [facility] AM -PAC ?6 clicks? Daily Activity Inpatient Short Form: Raw score: 9 Standardized score: 25.33 CMS score: 79.59% CMS modifier: CL INFORMED CONSENT/EDUCATION: Pt instructed in purpose of OT Consult and plan of care. ASSESSMENT: Patient is a 73-year-old female referred to occupational therapy services with diagnosis of altered mental status. 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 Patient presents with clinical signs and symptoms consistent with dx, as demonstrated by the following impairment level findings/functional limitations: Decreased ROM of (L) UE, decreased (I) in ADLs/IADLs, decreased functional activity tolerance, only able to give 1-2 word responses with asked, requires both verbal and tactile cues when performing ADLs. Max (A) for functional mobility. AMPAC score 9, CMS score 79.59% Patient is assessed as a high [id number] complexity based on the following: History: See Above Examination: See Above Presentation: Evolving Decision Making: AMPAC score 9, CMS score 79.59% GOALS Goals x1 week 1. Bathing- Sitting in bed pt will be (I) with washing face, (L) UE and min- mod (A) for abdomen, max (A) (R) UE 2. Eating- Sitting in bed pt will be able to perform eating routine with supervision from nursing with (I) from selecting items off her tray with min vc and mod (A) for cutting food. PLAN OF CARE/TREATMENT PLAN: 1x/day, 5 days/ week x 1week Initiate Occupational Therapy Services for bathing, dressing, grooming, toileting, eating, transfer training. DISCHARGE RECOMMENDATIONS Return to [facility] TREATMENT TIME/MINUTES/CODES [id number], [id number], 50 minutes (08:55) G Codes in the area of self- : washing oneself, toileting, dressing, eating and drinking, current status GO [id number] CL projected status GO [id number]. Discharge status (if discharging) GO [id number] Jocelyn Torres OTR/[facility]
--- NOTE | 2018-06-10 11:38 | OTIE_ITS ---
Occupational Therapy Notes Inpatient Occupational Therapy Evaluation Date: 06/10/18 Referring Doctor:Colleen Aguilar MD OT Orders: Eval and Treat Precautions: Contact, fall precautions PATIENT PROFILE/ADMITTING DIAGNOSIS: Pt is a 73 year old female who was Patient admitted from [facility] due to altered mental status. She was found to have a UTI, and has been treated with antibiotics per the ER. 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 Social History/Home Situation: Pt resides at the [facility] according to staff there, she transfers Via Alessandra lift to the wheelchair. She is a 2 person assist for bed mobility and is dependent for ADLs and feeding. Pt is unable to verbalize how much (A) she is provided at the [facility]. Equipment owned/DME: Residing in long-term care facility with all equipment needs met SUBJECTIVE: Natalya is unable to provide subjective history, but responds with yes,no and more answers to direct questions. When OT arrived she did state yes for OT consult. OBJECTIVE: General Observation: IV (R) UE, increased tone in (L) UE no AROM/PROM able to be performed. Mental Status: Alert was able to follow multi step commands if eye contact was made. Pain: no c/o pain, OT did ask pt who stated no ROM: RUE Within functional limits able to reach behind her head, to opposite shoulder and down towards her legs. L UE significant tone noted, OT was unable to passively move (L) UE at todays session due to increase tone production. STRENGTH: Unable to test as pt was able to lift her (R) UE but did not understand OT's instructions. SENSATION: OT would touch pts (R) UE and ask pt if she could feel OT and she would report yes, when OT asked pt for (L) UE she would say yes and no no for the hand and lower forearm and yes for upper arm near shoulder. FUNCTIONAL MOBILITY/ADLS: BATHING Sitting in bed Bathing UE Able to wash bottom half of face with wash cloth and water (I) with verbal and tactile cues indicating hand and face. Pt was also able to (I) wash her (L) UE with her (R) arm if OT provided tactile touch to pts (R) arm then (L) stating wash please EATING Sitting in bed with (R) arm supported on pillow per nursing report. Nursing removed board on pts (R) UE covering IV indicating that this did not have to go on at this time. Pts breakfast was brought in and nursing reported that previously she was max (A) for eating as pt was unable to perform. Nursing did state that it was ok for pt to eat. OT started by handing the fork to pt she demonstrated (I) with bringing fork to mouth. Then OT put food on pts fork and she was able to bring food to her mouth (I) and chew/swallow. Pt also was able to bring finger food to her mouth (I) with supervision for small bites. Next pt demonstrated increased (I) in performing the stabbing of the fork into the food with translation to her mouth. When OT provided pt the fork or the spoon she was able to pick which one she wanted and get her own food with food on her table on her lap. When taking a drink she demonstrated increased (I) with grasping the handle and bringing the container to her mouth with min (A) for the straw. OT provided min-mod vc throughout. BALANCE: Static sitting Good Dynamic Sitting Fair SPECIAL TESTS: Daily Activity Limitations Standardized Measure [facility] AM -PAC ?6 clicks? Daily Activity Inpatient Short Form: Raw score: 9 Standardized score: 25.33 CMS score: 79.59% CMS modifier: CL INFORMED CONSENT/EDUCATION: Pt instructed in purpose of OT Consult and plan of c are. ASSESSMENT: Patient is a 73-year-old female referred to occupational therapy services with diagnosis of altered mental status. 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 Patient presents with clinical signs and symptoms consistent with dx, as demonstrated by the following impairment level findings/functional limitations: Decreased ROM of (L) UE, decreased (I) in ADLs/IADLs, decreased functional activity tolerance, only able to give 1-2 word responses with asked, requires both verbal and tactile cues when performing ADLs. Max (A) for functional mobility. AMPAC score 9, CMS score 79.59% Patient is assessed as a high [id number] complexity based on the following: History: See Above Examination: See Above Presentation: Evolving Decision Making: AMPAC score 9, CMS score 79.59% GOALS Goals x1 week 1. Bathing- Sitting in bed pt will be (I) with washing face, (L) UE and min- mo d (A) for abdomen, max (A) (R) UE 2. Eating- Sitting in bed pt will be able to perform eating routine with supervision from nursing with (I) from selecting items off her tray with min vc and mod (A) for cutting food. PLAN OF CARE/TREATMENT PLAN: 1x/day, 5 days/ week x 1week Initiate Occupational Therapy Services for bathing, dressing, grooming, toileting, eating, transfer training. DISCHARGE RECOMMENDATIONS Return to [facility] TREATMENT TIME/MINUTES/CODES 17356, [id number], 50 minutes (08:55) G Codes in the area of self- : washing oneself, toileting, dressing, eating and drinking, current status GO [id number] CL projected status GO [id number]. Discharge status (if discharging) GO [id number] Jocelyn Torres OTR/L [facility]
--- NOTE | 2018-06-10 12:09 | W.SPEECHEVAL ---
Date of service: 06/10/18 Time of Service: 10:45 Speech Therapy Evaluation Note: REFERRING PROVIDER: Dr. Aguilar BACKGROUND This is a 73 year old right-handed female who initially presented to the ED from her SNF due to AMS. She has had fluctuations in alertness and on 06/09/18 a swallow eval was ordered. I attempted to see the patient (pt) for this yesterday but she was too somnolent to participate. Consequently, a swallow eval was not done and Dr. Aguilar changed the pt from a Regular consistency diet to n.p.o. Today's visit is a second attempt at the swallow eval. PMH: dementia, DM II, CAD s/p CABG, CKD Stage V, HTN, GERD, dyslipidemia, recurrent UTIs, reactive airway disease. The pt is unable to give any verbal h/o regarding p. o. consistencies tolerated in the days/weeks prior to this admission. The nursing production planning supervisor checked the records sent from the SNF but no info on p. o. consistencies is given. OBJECTIVE Nursing reports: - T: 36.6 - O2 sat: 98% on 2 L via NC - LS: R - CTA; L - crackles - Pt tolerated whole pills with a liquid wash yesterday and Thin liquids and soft chewable foods this morning (contrary to the n.p.o. order). The pt has been repositioned by the LNAs so that she is sitting up in bed. She has her eyes closed but does open them and makes delayed direct eye contact upon my verbal greeting. She keeps her eyes open for a few moments but then closes them and requires verbal cueing to reopen them. She is able to say only her first name on request but is makes no verbal responses to additional questions. Her vocal intensity/volume is severely decreased but vocal quality is WNL. Speech intelligibility to this unfamiliar listener in the presence of mild background noise is 90%. She is unable to follow basic 1-step directions and so is unable to participate in a full oral sensorimotor exam. She does allow me to visually and manually inspect her dentition. She has a full upper denture (FUD) and her own lower anterior teeth but is edentulous bilaterally in the posterior areas. There is significant plaque on both the FUD and the lower anterior teeth. Swallowing - Honey-thick liquid: Good bolus control and posterior oral transit (POT); no love signs/symptoms (s/s) of aspiration/penetration (A/P); oral clearance: 100%; no oral escape. These results are true for 1 tsp and single cup-sip amounts. - Sigel-thick liquid: Results are the same as for Honey-thick liquid. - Thin liquid: Decreased bolus control; adequate POT; no love s/s A/P but the swallow is audible; oral clearance: 80%; left oral escape. - Puree food: Good bolus control; adequate linguopalatal bolus compression; POT: WNL; no love s/s A/P; oral clearance: 100%; no oral escape. - Mechanically Altered food: Good mastication quality, bolus control & POT; no love s/s A/P; oral clearance: 100%; no oral escape. - Dysphagia Advanced food: Significantly increased mastication time but this does result in good mastication quality; bolus control & POT are WNL; no love s/s A/P; oral clearance: 100%; no oral escape. INTERPRETATION Although the pt's alertness & participation are enough to warrant proceeding with an eval, it is felt to be somewhat less that what has been noted by nursing during times of p. o. intake. She currently shows a moderate oropharyngeal dysphagia. With adequate alertness/participation, she seems to be able to tolerate p. o. intake. RECOMMENDATIONS 1. Change from n.p.o. to p.o. with: - Sigel-thick liquids - a Mechanically Altered diet with moistened fine-chopped meats - whole pills (either with a liquid wash or in puree) as tolerated; crushed pills in puree prn 2. Biotene Antibacterial Mouthwash (15 mls) BEFORE each meal - swish & spit if possible, via oral swab if not. Green star pt's menu. 3. Supervised self-feeding with assist prn. 4. p.o., intake ONLY with sufficient alertness/participation. 5. Increase/improve oral hygiene. 6. Speech therapy to maximize swallow safety. Thank you for referring this pt.
[2018-06-10 15:01] LABS: Anion Gap 9.1 mmol/L (3-11); CO2 22.9 mmol/L (21.0-32.0); Calcium 8.3 mg/dL (8.5-10.1); Chloride 106 mmol/L (98-107); Estimated GFR 10.15 (mL/min/1.73m2); Glucose 222 mg/dL (70-100); Sodium 138 mmol/L (136-145)
[2018-06-10 15:07] LABS: BUN 82 mg/dL (7-18); CREATININE 4.27 mg/dL (0.55-1.02)
[2018-06-10 15:39] VITALS: BP 129/52; PULSE 51; RESP 18; TEMP 36.5; O2SAT 98
--- NOTE | 2018-06-10 18:27 | W.PM.PROGNOT ---
Date of Service Date of service: 06/10/18 Time of Service: 15:30 Assessment and Plan (1) Toxic metabolic encephalopathy: Current visit: Yes Status: Acute Multifactorial, due to UTI, HCAP, Uremia, hypoglycemia. Continue rocephin/vancomycin. MOdified diet started. Palliative care agrees that hospice might be appropriate - will discuss with the family. (2) HCAP (healthcare-associated pneumonia): Current visit: Yes Status: Acute Vancomycin/rocephin. WBC is already better. (3) UTI (urinary tract infection): Current visit: Yes Status: Acute Urine C&S with GNR >100,000 CFU (has not yet speciated). Continue rocephin (4) Hypoglycemia: Current visit: Yes Status: Acute Likely due to acute infection in addition to Poor PO intake. Continue D5 fluids and monitor for hypoglycemia (5) PAF (paroxysmal atrial fibrillation): Current visit: Yes Status: Chronic Continue to Hold anticoagulation for now (may need a PEG tube, ?goals of care) (6) CKD (chronic kidney disease) stage 5, GFR less than 15 ml/min: Current visit: Yes Status: Chronic Palliative care consulted - qualifies for hospice (7) CHF (congestive heart failure): Current visit: Yes Status: Suspected Clinically, not fluid overloaded. Continue gentle D5 fluids and monitor respiratory status. Largely related to kidney failure. (8) CAD (coronary artery disease): Current visit: Yes Status: Chronic No ACS on this admission (9) Hypertension: Current visit: Yes Status: Chronic Resume BP meds. (10) Dyslipidemia: Current visit: Yes Status: Chronic As above (11) GERD (gastroesophageal reflux disease): Current visit: Yes Status: Chronic PPI IV (12) DVT prophylaxis: Current visit: Yes Status: Acute Therapeutic on coumadin (13) Discharge planning issues: Current visit: Yes Status: Acute DNR/DNI Palliative care consulted - [facility]hospice at [facility] Subjective Interval history since last seen: The patient has been screaming out help! for the majority of the day - except for when the family was here to see her. My impression is that she is in pain from her legs, but she does not clearly answer my question about that - or any other question. Passed swallow eval. Exam Narrative Exam Narrative: General: A&Ox1, lethargic, arousable, not answering questions consistently, yelling out help when I am not directly trying to engage her. HEENT: EOMI, MMM Heart: RRR, +RODNEY Lungs: CTAB GI: abdomen soft, nontender, nondistended Extremities: no e/c/c BLE's Objective Objective Clinical Data: Abnormal lab results 06/10/18 06/10/18 06/10/18 Range/Units 06:32 06:32 06:32 RBC 3.11 L (4.00-5.20) m/cumm Hgb 8.5 L (12.0-15.5) g/dL Hct 26.9 L (36.0-46.0) % MCHC 31.6 L (32.0-36.0) g/dL Absolute Monocytes 0.83 H (0.11-0.7) k/cumm PT 19.7 H D (9.3-11.0) sec INR 2.0 H D (0.9-1.1) Carbon Dioxide 20.7 L (21.0-32.0) mmol/L Anion Gap 11.3 H (3-11) mmol/L BUN 83 H* (7-18) mg/dL Creatinine 4.24 H* (0.55-1.02) mg/dL Glucose 153 H (70-100) mg/dL Calcium (8.5-10.1) mg/dL 06/10/18 Range/Units 14:20 RBC (4.00-5.20) m/cumm Hgb (12.0-15.5) g/dL Hct (36.0-46.0) % MCHC (32.0-36.0) g/dL Absolute Monocytes (0.11-0.7) k/cumm PT (9.3-11.0) sec INR (0.9-1.1) Carbon Dioxide (21.0-32.0) mmol/L Anion Gap (3-11) mmol/L BUN 82 H* (7-18) mg/dL Creatinine 4.27 H* (0.55-1.02) mg/dL Glucose 222 H (70-100) mg/dL Calcium 8.3 L (8.5-10.1) mg/dL Vital Signs Temperature 36.5 C 06/10/18 15:39 Temperature Source Tympanic 06/10/18 15:39 Pulse 51 L 02/05/19 15:39 Pulse Rhythm Regular 06/10/18 08:10 Pulse 46 L 06/08/18 18:47 Respiratory Rate 18 06/10/18 15:39 Respiratory Effort 06/10/18 08:10 Respiratory Depth Normal 06/10/18 08:10 Respiratory Pattern Normal 06/10/18 08:10 Blood Pressure 129/52 L 06/10/18 15:39 Blood Pressure Mean 68 06/08/18 18:47 Blood Pressure Position Sitting 06/08/18 13:31 Pulse Oximetry 98 06/10/18 15:39 Oxygen Delivery Method Nasal Cannula 06/10/18 15:39 Oxygen Flow Rate 2 06/10/18 15:39 Pain Level 0 06/08/18 18:39 Comment 06/08/18 19:47 Intake & Output 06/09/18 06/10/18 06/10/18 23:59 11:59 23:59 Intake Total 1201 / 1201 664 / 904 240 / 904 Output Total 603 / 603 186 / 186 Balance 598 / 598 478 / 718 240 / 718 Weight 99.2 kg Intake: IV 471 / 471 364 / 364 Oral 730 / 730 300 / 540 240 / 540 Output: Urine 603 / 603 186 / 186 Other: Comment small incontinence in diaper before INC Stool Size Small Smear Stool Characteristics Soft Black Brown Green Voiding Methods Incontinent Diaper Diaper Incontinent Incontinent Laboratory Results WBC 7.84 k/cumm (4.4-10.8) 06/10/18 06:32 RBC 3.11 m/cumm (4.00-5.20) L 06/10/18 06:32 Hgb 8.5 g/dL (12.0-15.5) L 06/10/18 06:32 Hct 26.9 % (36.0-46.0) L 06/10/18 06:32 MCV 86.5 fL (80-95) 06/10/18 06:32 MCH 27.3 pg (27.0-33.0) 06/10/18 06:32 MCHC 31.6 g/dL (32.0-36.0) L 06/10/18 06:32 RDW 14.6 % (11.7-14.6) 06/10/18 06:32 Plt Count 135 x1000/uL (130-400) 06/10/18 06:32 MPV 10.4 fL (8.0-11.0) 06/10/18 06:32 Immature Gran % 0.3 06/10/18 06:32 Neutrophils % 67.2 06/10/18 06:32 Lymphocytes % 16.5 06/10/18 06:32 Monocytes % 10.6 06/10/18 06:32 Eosinophils % 5.1 06/10/18 06:32 Basophils % 0.3 06/10/18 06:32 Absolute Neutrophils 5.28 k/cumm (1.2-6.7) 06/10/18 06:32 Absolute Lymphocytes 1.29 k/cumm (1.2-3.4) 06/10/18 06:32 Absolute Monocytes 0.83 k/cumm (0.11-0.7) H 06/10/18 06:32 Absolute Eosinophils 0.40 k/cumm (0.0-0.7) 06/10/18 06:32 Absolute Basophils 0.02 k/cumm (0.0-0.2) 06/10/18 06:32 PT 19.7 sec (9.3-11.0) H D 06/10/18 06:32 INR 2.0 (0.9-1.1) H D 06/10/18 06:32 Sodium 138 mmol/L (136-145) 06/10/18 14:20 Potassium 5.0 mmol/L (3.5-5.1) 06/10/18 14:20 Chloride 106 mmol/L (98-107) 06/10/18 14:20 Carbon Dioxide 22.9 mmol/L (21.0-32.0) 06/10/18 14:20 Anion Gap 9.1 mmol/L (3-11) 06/10/18 14:20 BUN 82 mg/dL (7-18) H* 06/10/18 14:20 Creatinine 4.27 mg/dL (0.55-1.02) H* 06/10/18 14:20 Estimated GFR/1.73 m2 10.15 (mL/min/1.73m2) 06/10/18 14:20 Glucose 222 mg/dL (70-100) H 06/10/18 14:20 Lactate 1.2 mmol/l (0.6-1.4) 06/09/18 07:10 Calcium 8.3 mg/dL (8.5-10.1) L 06/10/18 14:20 Magnesium 2.1 mg/dL (1.8-2.4) 06/10/18 06:32 Total Bilirubin 0.3 mg/dL (0.2-1.0) 06/08/18 14:01 AST 14 U/L (15-37) L 06/08/18 14:01 ALT 16 U/L (12-78) 06/08/18 14:01 Alkaline Phosphatase 92 U/L (46-116) 06/08/18 14:01 Troponin I 0.03 ng/mL (0.00-0.06) 06/09/18 07:10 Total Protein 6.8 g/dL (6.4-8.2) 06/08/18 14:01 Albumin 2.9 g/dL (3.4-5.0) L 06/08/18 14:01 Urine Color Yellow (Yellow) 06/08/18 14:01 Urine Clarity Cloudy 06/08/18 14:01 Urine pH 7.0 (5-8) 06/08/18 14:01 Ur Specific [place] 1.020 (1.005-1.025) 06/08/18 14:01 Urine Protein >=300 mg/dL (Negative) H 06/08/18 14:01 Urine Ketones Negative mg/dL (Negative) 06/08/18 14:01 Urine Blood Trace-intact (Negative) H 06/08/18 14:01 Urine Nitrite Negative (Negative) 06/08/18 14:01 Urine Bilirubin Negative (Negative) 06/08/18 14:01 Urine Urobilinogen 0.2 EU/dL (Up TO 0.2) 06/08/18 14:01 Ur Leukocyte Esterase Moderate (Negative) H 06/08/18 14:01 Urine RBC Negative (0-2) 06/08/18 14:01 Urine WBC >50 HPF (0-5) 06/08/18 14:01 Ur Epithelial Cells Few HPF (Negative) 06/08/18 14:01 Urine Crystals Negative HPF (Negative) 06/08/18 14:01 Urine Bacteria Many HPF (Negative) 06/08/18 14:01 Urine Casts Negative LPF (Negative) 06/08/18 14:01 Urine Mucus Negative (Negative) 06/08/18 14:01 Urine Other Rare renal (Negative) 06/08/18 14:01 Ur Culture Indicated? Yes 06/08/18 14:01 Urine Glucose Negative mg/dL (Negative) 06/08/18 14:01
--- NOTE | 2018-06-10 18:57 | PDOC.CMPRO ---
- If Service Date Differs Date of service: 06/10/18 Time of Service: 18:57 Care Management Progress Note S/O: CM met with Natalya at the bedside, she met with palliative care today. Plan will be for probably to return to [facility] on hospice services. Dr. Hwang to meet with Jeanette tomorrow afternoon to determine the plan. CM did provide update to daughter Jeanette over the phone and contacted palliative care to left a message r/t time of available of family. CM to coordinate hospice services with home health at time of discharge and return to [facility]. A: Natalya is a 73-year-old female admitted with altered mental status and UTI P: Natalya return to [facility] with new hospice services completed CTI and will plan to assist with admission return to [facility].
[2018-06-10 20:00] VITALS: BP 128/56; RESP 18; TEMP 36.5; O2SAT 98
[2018-06-10] MEDS: Ferrous Sulfate 325 MG TAB PO (21:15)
[2018-06-10] MEDS: Losartan 50 MG TAB PO (21:50)
[2018-06-10] MEDS: Mirtazapine 15 MG TAB 7.5 MG PO (21:51)
[2018-06-10] MEDS: Isosorbide Mononitrate 60 MG TABCR PO (21:53)
[2018-06-10] MEDS: traZODone 50 MG TAB PO (21:53)
[2018-06-11 00:08] VITALS: BP 111/47; PULSE 52; RESP 18; TEMP 36.9; O2SAT 100
[2018-06-11 07:40] VITALS: BP 151/73; PULSE 63; RESP 18; TEMP 36.9; O2SAT 96
[2018-06-11 07:49] LABS: Magnesium 2.1 mg/dL (1.8-2.4)
[2018-06-11 08:23] LABS: Abs Immature Grans 0.03 k/cumm (0.0-0.09); Absolute Basophil Count 0.02 k/cumm (0.0-0.2); Absolute Eosinophil Count 0.42 k/cumm (0.0-0.7); Absolute Lymphocyte Count 1.09 k/cumm (1.2-3.4); Absolute Monocyte Count 0.74 k/cumm (0.11-0.7); Absolute Neutrophil Count 5.11 k/cumm (1.2-6.7); Basophils % 0.3; Eosinophils % 5.7; HCT 27.3 % (36.0-46.0); HGB 8.5 g/dL (12.0-15.5); Immature Grans % 0.4; Lymphocytes % 14.7; Mean Corp. HGB Concentration 31.1 g/dL (32.0-36.0); Mean Corpuscular Hemoglobin 26.9 pg (27.0-33.0); Mean Corpuscular Volume 86.4 fL (80-95); Mean Platelet Volume 10.2 fL (8.0-11.0); Neutrophils % 68.9; Platelet Count 132 x1000/uL (130-400); RBC 3.16 m/cumm (4.00-5.20); RBC Distribution Width 14.5 % (11.7-14.6); White Blood Cell Count 7.41 k/cumm (4.4-10.8)
[2018-06-11] MEDS: Isosorbide Mononitrate 60 MG TABCR PO ×2 (08:41→20:39)
[2018-06-11] MEDS: Ferrous Sulfate 325 MG TAB PO ×2 (08:41→20:39)
[2018-06-11] MEDS: Calcitriol 0.25 MCG CAP PO (08:41)
[2018-06-11] MEDS: amLODIPine 10 MG TAB PO (08:41)
[2018-06-11] MEDS: Carvedilol 6.25 MG TAB 18.75 MG PO ×2 (08:42→20:39)
[2018-06-11] MEDS: Cyanocobalamin 500 MCG TAB 1000 MCG PO (08:42)
[2018-06-11] MEDS: Magnesium Oxide 400 MG TAB PO (08:42)
[2018-06-11 08:48] LABS: INR 1.7 (0.9-1.1); Prothrombin Time 16.8 sec (9.3-11.0)
[2018-06-11] MEDS: Pantoprazole 40 MG VIAL IVP (08:52)
[2018-06-11] MEDS: Insulin Aspart 300 UNITS/3 ML PEN SC ×3 (08:52→16:30)
[2018-06-11] MEDS: Normal Saline Flush 10 ML SYR IVP (08:53)
--- NOTE | 2018-06-11 09:47 | OT.INTREAT ---
Date of service: 06/11/18 Time of Service: 08:50 Occupational Therapy Notes Occupational Therapy Inpatient Treatment Note Date: 06/11/18 PRECAUTIONS: Fall Risk, Contact precautions SUBJECTIVE: Pt was sitting up in bed when OT arrived. She said yes when asked if she wanted to participate in OT session. OBJECTIVE: PAIN:When asked Pt reports no BATHING: Upper Body: Mod (A) for bathing face and (L) UE. Pt was able to grasp clothe and cross midline functionally. GROOMING: Sitting in bed with mod vc and tactile touch of (R) hand and cheek pt held her toothbrush in her (R) hand and brushed the (L) side of her teeth with good pressure and good (R) UE movement. She was max (A) for upper teeth and performed teeth brushing with just water at this time. EATING: Sitting in chair pt was able to grasp and release spoon, reach for spoon with food on it and bring it to her mouth (I) and grasp cup with handles bring it to her mouth and place the cup back on her tray. Required min (A) for tilting cup to get fluid out of mouth piece. She is on a honey thick liquid diet per SLT and is demonstrating increased (I) with this. Functionally she was presented with three spoons all different food items she would pick from her tray and eat based on what she wanted. She would indicate more yes no for choices. Pt requires max (A) for getting food on to spoon at this time. ASSESSMENT: Pt is demonstrating increased (I) in gross and fine motor control during eating routine and bathing. She is still requiring mod (A) for bathing but with simple commands she is able to follow them. Tactile cues are required for direction to pt and pt responded well to this. PT would benefit from continued skilled OT services for progression of (I) in eating and UE bathing routine. PLAN: OT will plan to progress pts (I) with functional participation during eating and washing UE and face with increased (I). Eating will be based on SLT instruction. OT will work more functionally on eating for grasp and release techniques as well as AROM for (R) UE. Plan is for pt to return to [facility] on hospice care per note. TREATMENT CODES/TIME: [id number], 33 minutes (08:50) Jocelyn Torres, OTR/L [facility]
[2018-06-11] MEDS: Nystatin CREAM 15 GM TUBE TP ×3 (10:36→20:39)
[2018-06-11 11:54] LABS: Anion Gap 14.9 mmol/L (3-11); CO2 17.1 mmol/L (21.0-32.0); Calcium 8.7 mg/dL (8.5-10.1); Chloride 107 mmol/L (98-107); Estimated GFR 9.83 (mL/min/1.73m2); Glucose 186 mg/dL (70-100); Potassium 5.1 mmol/L (3.5-5.1); Sodium 139 mmol/L (136-145)
[2018-06-11 11:57] LABS: BUN 81 mg/dL (7-18); CREATININE 4.39 mg/dL (0.55-1.02)
--- NOTE | 2018-06-11 14:42 | DM INPTCON_ITS ---
Date of service: 06/09/18 Time of Service: 15:23 Diabetes Inpatient Consult DESCRIPTION/ASSESSMENT: Appreciate diabetes consult for Natalya Arnett who is hospitalized with CAD, UTI and renal concerns. BMI 37 A1c 5.7 Blood sugars are at goal of less than 180 fasting and before lunch. She has an elevated blood sugar daily and for the past 2 days has most blood sugars above 180 receiving D5. H&P indicates hypoglycemia but it isn't apparent during this visit. She receives insulin correction at the sensitive level. She is eating 0- 50% of her offered meals. Home medication regimen at [facility] is 20u Novolog in the AM. She is considering hospice care per Provider report. INTERVENTION: It appears Ms. Arnett has elevated blood sugars possibly secondary to D5 administration. Her home insulin regimen is unusual and she may benefit from the same dose of long acting insulin instead of the high dose of fast acting insulin if elevated blood sugars persist. No self management support indicated at this time. PLAN: Follow blood sugars. Suggest discontinuing D5 if blood sugars remain elevated. Time Spent in Nutritional Counseling and Treatment: patient not seen
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
[2018-06-11 17:02] VITALS: BP 129/55; PULSE 56; RESP 17; TEMP 36.1; O2SAT 95
--- NOTE | 2018-06-11 17:23 | W.PALLCONSUL ---
Date of service: 06/10/18 History of Present Illness Chief Complaint: ESRD, acute on chronic mental status change, hospice discussion Narrative: I met with Natalya on Med-Surg. She was by herself in her room at first, unable to give more than a one word answer, and then only inconsistently. I spoke with her primary nurse, Yu Dubois, who reported that Natalya seems to be in pain much of the time. She can still swallow when awake enough to do so. She is wearing depends; does not have a catheter; and her UOP is less than normal but not critically low. Her daughter, Refugio, whom I have met before on earlier consults at the [facility] where Natalya has lived for almost one year, was unable to meet today at the bedside. I did talk to Dr. Gerri Hall, who is Natalya's PCP and program medical director of the Rehab. She said she has seen a decline in Natalya's health status over the last 3 months particularly and she felt that she qualified for hospice, if that is the direction eRfugio thinks Natalya would want to go. Refugio is the DPOA. Natalya can no longer make her own medical decisions. Dr Aguilar, hospitalist, is currently treating Natalya for HCAP with IV antibiotics. She has not had a rapid turn around despite > 40 hrs of medication. Consults Consult date: 06/10/18 Requesting physician: Colleen Aguilar Assessment and Plan (1) Encounter for hospice care discussion: Current visit: Yes Status: Acute Have talked to medical insurance collector also part of care team, PCP and hospitalist. Natalya made the decision not to pursue dialysis almost one year ago. At that time, she was told she only had 3-4 months to live. It's been almost a year. At this time, her quality of life is poor. She is often anxious or in pain. Per Dr. Espinosa, Refugio, Natalya's daughter and DPOA is supportive of changing her mother's care to hospice when [facility] Plan is to admit sometime this week upon return to [facility]. I will do hospice orders and CTI, with Dr Aguilar, hospitalist, to co-sign as Dr Espinosa is away from the facility this week. (2) Palliative care patient: Current visit: Yes Status: Chronic will see tomorrow again with daughter to ensure that plan is understood and that daughter has chance to ask questions, etc (3) HCAP (healthcare-associated pneumonia): Current visit: Yes Status: Acute continue treating per Dr Aguilar (4) Toxic metabolic encephalopathy: Current visit: Yes Status: Acute Due to uremia from her ESRD Review of Systems Review of Systems Unobtainable due to mental status PFSH Medical History Palliative care patient (Chronic) Altered mental status (Acute) Weakness (Chronic) Surgical History Colonoscopy - MAC (01/23/16) EGD - MAC (01/23/16) Social History caregiver/support person: Yes household members: other housing: shelter marital status: lives independently: No number of children: 4 shelter: Yes current occupational status: retired pets and animals: No well-balanced diet: about half the time eating out: rarely or never reads food labels: seldom or never during the past year weight has: decreased > 10 lbs Smoking/Tobacco Use Status: Never agree to transfusion: Yes Exam Const General: anxious, ill appearing and lethargic Nutritional Appearance: obese Orientation: awake and oriented to person Limitations: altered mental status HENMT Head: normocephalic Ears: external ears normal General nose exam: external nose normal Face and sinus: dry mucous membranes Eyes Conjunctivae: conjunctivae normal Sclera: sclerae normal Pupils: PERRL Neck Neck: no lymphadenopathy Resp Effort & Inspection: normal respiratory effort Auscultation: clear to auscultation bilaterally (anterior mccoy only, could not move her to listen lateral or posterior fie) Cardio Jugular venous pressure: no JVD Rate: regular rate Rhythm: abnormal rhythm irregularly irregular Heart Sounds: S1 normal GI Inspection: normal to inspection and obesity Palpation: soft Auscultation: hypoactive bowel sounds Skin General skin exam: no rashes or lesions noted and dry skin Neuro General: awake, oriented Patient Orientation: Person and unable to assess gait Cranial Nerves: hearing normal Cognition: abnormal cognition Speech: abnormal speech, expressive aphasia and receptive aphasia Sensory Exam: no sensory deficits noted Extrem General: edema and muscle atrophy Psych Appearance: other (not alert or interactive fully, minimal response) Mental Status: other (minimally responsive, can speak only one word at a time) Speech and Movement: delayed speech and slowed movement Mood: anxious mood and other (minimally responsive, can speak only one word at a time) Affect: anxious affect Attitude: cooperative Thought Process: impoverished Insight: poor Judgment: poor Other: not able to make her own medical decisions at this time will consult with DPYANICK, daughter Refugio, tomorrow at bedside plan that is proposed at this time is to return to Rehab on hospice will see when that can be implemented heard from Dr Espinosa that Refugio supports this, but have not contacted Refugio myself. Results Last Vital Signs Temp 97.0 F L 06/11/18 17:02 Pulse 56 L 06/11/18 17:02 Resp 17 06/11/18 17:02 BP 129/55 L 06/11/18 17:02 Pulse Ox 95 06/11/18 17:02 Labs : 06/11/18 08:10 06/11/18 08:30 Laboratory Results - last 24 hr 06/11/18 06/11/18 06/11/18 06:40 06:40 08:10 WBC 7.41 RBC 3.16 L Hgb 8.5 L Hct 27.3 L MCV 86.4 MCH 26.9 L MCHC 31.1 L RDW 14.5 Plt Count 132 MPV 10.2 Immature Gran % 0.4 Neutrophils % 68.9 Lymphocytes % 14.7 Monocytes % 10.0 Eosinophils % 5.7 Basophils % 0.3 Absolute Neutrophils 5.11 Absolute Lymphocytes 1.09 L Absolute Monocytes 0.74 H Absolute Eosinophils 0.42 Absolute Basophils 0.02 PT 16.8 H INR 1.7 H Sodium Potassium Chloride Carbon Dioxide Anion Gap BUN Creatinine Estimated GFR/1.73 m2 Glucose Calcium Magnesium 2.1 C-Reactive Protein 1.40 H 06/11/18 08:30 WBC RBC Hgb Hct MCV MCH MCHC RDW Plt Count MPV Immature Gran % Neutrophils % Lymphocytes % Monocytes % Eosinophils % Basophils % Absolute Neutrophils Absolute Lymphocytes Absolute Monocytes Absolute Eosinophils Absolute Basophils PT INR Sodium 139 Potassium 5.1 Chloride 107 Carbon Dioxide 17.1 L Anion Gap 14.9 H BUN 81 H* Creatinine 4.39 H* Estimated GFR/1.73 m2 9.83 Glucose 186 H Calcium 8.7 Magnesium C-Reactive Protein
--- NOTE | 2018-06-11 17:24 | PDOC.CMPRO ---
- If Service Date Differs Date of service: 06/11/18 Time of Service: 17:25 Care Management Progress Note S/O: CM With Natalya and her daughter Jeanette today at the bedside completed the hospice forms, and CTI. Plan will be for Natalya to return to health and rehab on at 11 AM via ambulance transfer. Daughter is appreciated of of hospice support when she returns back to [facility]. Palliative provider and to see the patient today and met with the daughter. CM is contacted home health and coordinated hospice admission at [facility] and rehab at noon. A: Natalya is a 73-year-old female that was admitted for altered mental status, and UTI. She has a history of dementia and long-term placement at local rehab. P: Natalya will be discharged back to [facility] on to hospice services. CM to coordinate transportation. Family and providers updated with the plan CM coordinated services with [place] [facility]. CM completed forms for hospice and faxed to home health. CTI was signed and faxed to home health.
--- NOTE | 2018-06-11 17:42 | PCNE_ITS ---
Date of service: 06/10/18 History of Present Illness Chief Complaint: ESRD, acute on chronic mental status change, hospice discussion Narrative: I met with Natalya on Med-Surg. She was by herself in her room at first, unable to give more than a one word answer, and then only inconsistently. I spoke with her primary nurse, Yu Dubois, who reported that Natalya seems to be in pain much of the time. She can still swallow when awake enough to do so. She is wearing depends; does not have a catheter; and her UOP is less than normal but not critically low. Her daughter, Refugio, whom I have met before on earlier consults at the [facility] where Natalya has lived for almost one year, was unable to meet today at the bedside. I did talk to Dr. Gerri Hall, who is Natalya's PCP and general medical practitioner of the Rehab. She said she has seen a decline in Natalya's health status over the last 3 months particularly and she felt that she qualified for hospice, if that is the direction Refugio thinks Natalya would want to go. Refugio is the DPOA. Natalya can no longer make her own medical decisions. Dr Aguilar, hospitalist, is currently treating Natalya for HCAP with IV antibiotics. She has not had a rapid turn around despite > 40 hrs of medication. Consults Consult date: 06/10/18 Requesting physician: Colleen Aguilar Assessment and Plan (1) Encounter for hospice care discussion: Current visit: Yes Status: Acute Have talked to medical sales specialist also part of care team, PCP and hospitalist. Natalya made the decision not to pursue dialysis almost one year ago. At that time, she was told she only had 3-4 months to live. It's been al most a year. At this time, her quality of life is poor. She is often anxious or in pain. Per Refugio Masterson, Natalya's daughter and DPOA is supportive of changing her mother's care to hospice when she returns to [facility]. Plan is to admit sometime this week upon return to and R. I will do hospice orders and CTI, with Dr Aguilar, hospitalist, to co-sign as Dr Espinosa is away from the facility this week. (2) Palliative care patient: Current visit: Yes Status: Chronic will see tomorrow again with daughter to ensure that plan is understood and that daughter has chance to ask questions, etc (3) HCAP (healthcare-associated pneumonia): Current visit: Yes Status: Acute continue treating per Dr Aguilar (4) Toxic metabolic encephalopathy: Current visit: Yes Status: Acute Due to uremia from her ESRD Review of Systems Review of Systems Unobtainable due to mental status PFSH Medical History Palliative care patient (Chronic) Altered mental status (Acute) Weakness (Chronic) Surgical History Colonoscopy - MAC (01/23/16) EGD - MAC (01/23/16) Social History caregiver/support person: Yes household members: other housing: correction marital status: lives independently: No number of children: 4 correction: Yes current occupational status: retired pets and animals: No well-balanced diet: about half the time eating out: rarely or never reads food labels: seldom or never during the past year weight has: decreased > 10 lbs Smoking/Tobacco Use Status: Never agree to transfusion: Yes Exam Const General: anxious, ill appearing and lethargic Nutritional Appearance: obese Orientation: awake and oriented to person Limitations: altered mental status HENMT Head: normocephalic Ears: external ears normal General nose exam: external nose normal Face and sinus: dry mucous membranes Eyes Conjunctivae: conjunctivae normal Sclera: sclerae normal Pupils: PERRL Neck Neck: no lymphadenopathy Resp Effort & Inspection: normal respiratory effort Auscultation: clear to auscultation bilaterally (anterior mccoy only, could not move her to listen lateral or posterior fie) Cardio Jugular venous pressure: no JVD Rate: regular rate Rhythm: abnormal rhythm irregularly irregular Heart Sounds: S1 normal GI Inspection: normal to inspection and obesity Palpation: soft Auscultation: hypoactive bowel sounds Skin General skin exam: no rashes or lesions noted and dry skin Neuro General: awake, oriented Patient Orientation: Person and unable to assess gait Cranial Nerves: hearing normal Cognition: abnormal cognition Speech: abnormal speech, expressive aphasia and receptive aphasia Sensory Exam: no sensory deficits noted Extrem General: edema and muscle atrophy Psych Appearance: other (not alert or interactive fully, minimal response) Mental Status: other (minimally responsive, can speak only one word at a time) Speech and Movement: delayed speech and slowed movement Mood: anxious mood and other (minimally responsive, can speak only one word at a time) Affect: anxious affect Attitude: cooperative Thought Process: impoverished Insight: poor Judgment: poor Other: not able to make her own medical decisions at this time will consult with DPYANICK, daughter Refugio, tomorrow at bedside plan that is proposed at this time is to return to Rehab on hospice will see when that can be implemented heard from Dr Espinosa that Refugio supports this, but have not contacted Refugio myself. Results Last Vital Signs Temp 97.0 F L 06/11/18 17:02 Pulse 56 L 06/11/18 17:02 Resp 17 06/11/18 17:02 BP 129/55 L 06/11/18 17:02 Pulse Ox 95 06/11/18 17:02 Labs : 06/11/18 08:10 06/11/18 08:30 Laboratory Results - last 24 hr 06/11/18 06/11/18 06/11/18 06:40 06:40 08:10 WBC 7.41 RBC 3.16 L Hgb 8.5 L Hct 27.3 L MCV 86.4 MCH 26.9 L MCHC 31.1 L RDW 14.5 Plt Count 132 MPV 10.2 Immature Gran % 0.4 Neutrophils % 68.9 Lymphocytes % 14.7 Monocytes % 10.0 Eosinophils % 5.7 Basophils % 0.3 Absolute Neutrophils 5.11 Absolute Lymphocytes 1.09 L Absolute Monocytes 0.74 H Absolute Eosinophils 0.42 Absolute Basophils 0.02 PT 16.8 H INR 1.7 H Sodium Potassium Chloride Carbon Dioxide Anion Gap BUN Creatinine Estimated GFR/1.73 m2 Glucose Calcium Magnesium 2.1 C-Reactive Protein 1.40 H 06/11/18 08:30 WBC RBC Hgb Hct MCV MCH MCHC RDW Plt Count MPV Immature Gran % Neutrophils % Lymphocytes % Monocytes % Eosinophils % Basophils % Absolute Neutrophils Absolute Lymphocytes Absolute Monocytes Absolute Eosinophils Absolute Basophils PT INR Sodium 139 Potassium 5.1 Chloride 107 Carbon Dioxide 17.1 L Anion Gap 14.9 H BUN 81 H* Creatinine 4.39 H* Estimated GFR/1.73 m2 9.83 Glucose 186 H Calcium 8.7 Magnesium C-Reactive Protein
[2018-06-11] MEDS: fentaNYL 12 MCG PATCH TD (18:03)
--- NOTE | 2018-06-11 18:08 | W.PM.PROGNOT ---
Date of Service Date of service: 06/11/18 Time of Service: 16:00 Assessment and Plan (1) Toxic metabolic encephalopathy: Current visit: Yes Status: Acute Multifactorial, due to UTI, HCAP, Uremia, hypoglycemia. It is at her new baseline today, but the baseline has been gradually getting worse, per daughter - likely reflectling progression of her kidney failure. Treating infection for now. Started on scheduled ativan and fentanyl patch. Planning [facility]. (2) HCAP (healthcare-associated pneumonia): Current visit: Yes Status: Acute Improving on Vancomycin/rocephin. (3) UTI (urinary tract infection): Current visit: Yes Status: Acute Klebsiella UTI POA. Continue rocephin (sensitive) (4) Hypoglycemia: Current visit: Yes Status: Resolved Likely due to acute infection in addition to Poor PO intake. Resolved. D5 fluids d/c'ed. (5) PAF (paroxysmal atrial fibrillation): Current visit: Yes Status: Chronic Continue to Hold anticoagulation as will be discharged to SNF on hospice (6) CKD (chronic kidney disease) stage 5, GFR less than 15 ml/min: Current visit: Yes Status: Chronic Discharging to SNF tomorrow on hospice (7) CHF (congestive heart failure): Current visit: Yes Status: Suspected Clinically, not fluid overloaded. (8) CAD (coronary artery disease): Current visit: Yes Status: Chronic No ACS on this admission (9) Hypertension: Current visit: Yes Status: Chronic Family is interested in continuing heart meds (10) Dyslipidemia: Current visit: Yes Status: Chronic As above (11) GERD (gastroesophageal reflux disease): Current visit: Yes Status: Chronic PPI IV (12) DVT prophylaxis: Current visit: Yes Status: Acute remains therapeutic on coumadin (13) Discharge planning issues: Current visit: Yes Status: Acute DNR/DNI Planned to be discharge to SNF on hospice tomorrow Subjective Interval history since last seen: The patient continues to yell out help when she is in the room alone. When she is being visited, she quiets down. She responded to no to questions about pain but yes to whether she is scared. She cannot tell us what she is scared of. She denies chest pain, shortness of breath, nausea, abdominal pain. Myself and Dr Hwang met with the patient's daughter Jeanette, who agrees that the patient should be discharged [facility] - planned for tomorrow. Exam Narrative Exam Narrative: General: A&Ox1, yelling out help, appears scared HEENT: EOMI, MMM Heart: RRR, +RODNEY Lungs: CTAB GI: abdomen soft, nontender, nondistended Extremities: no e/c/c BLE's Objective Objective Clinical Data: Abnormal lab results 06/11/18 06/11/18 06/11/18 Range/Units 06:40 06:40 08:10 RBC 3.16 L (4.00-5.20) m/cumm Hgb 8.5 L (12.0-15.5) g/dL Hct 27.3 L (36.0-46.0) % MCH 26.9 L (27.0-33.0) pg MCHC 31.1 L (32.0-36.0) g/dL Absolute Lymphocytes 1.09 L (1.2-3.4) k/cumm Absolute Monocytes 0.74 H (0.11-0.7) k/cumm PT 16.8 H (9.3-11.0) sec INR 1.7 H (0.9-1.1) Carbon Dioxide (21.0-32.0) mmol/L Anion Gap (3-11) mmol/L BUN (7-18) mg/dL Creatinine (0.55-1.02) mg/dL Glucose (70-100) mg/dL C-Reactive Protein 1.40 H (0.0-0.3) mg/dL 06/11/18 Range/Units 08:30 RBC (4.00-5.20) m/cumm Hgb (12.0-15.5) g/dL Hct (36.0-46.0) % MCH (27.0-33.0) pg MCHC (32.0-36.0) g/dL Absolute Lymphocytes (1.2-3.4) k/cumm Absolute Monocytes (0.11-0.7) k/cumm PT (9.3-11.0) sec INR (0.9-1.1) Carbon Dioxide 17.1 L (21.0-32.0) mmol/L Anion Gap 14.9 H (3-11) mmol/L BUN 81 H* (7-18) mg/dL Creatinine 4.39 H* (0.55-1.02) mg/dL Glucose 186 H (70-100) mg/dL C-Reactive Protein (0.0-0.3) mg/dL Vital Signs Temperature 36.1 C L 06/11/18 17:02 Temperature Source Tympanic 06/11/18 17:02 Pulse 56 L 06/11/18 17:02 Pulse Rhythm Regular 06/11/18 08:15 Pulse 46 L 06/08/18 18:47 Respiratory Rate 17 06/11/18 17:02 Respiratory Effort Non-Labored 06/11/18 08:15 Respiratory Depth Normal 06/11/18 08:15 Respiratory Pattern Normal 06/11/18 08:15 Blood Pressure 129/55 L 06/11/18 17:02 Blood Pressure Mean 68 06/08/18 18:47 Blood Pressure Position Sitting 06/08/18 13:31 Pulse Oximetry 95 06/11/18 17:02 Oxygen Delivery Method Room Air 06/11/18 17:02 Oxygen Flow Rate 0 06/11/18 17:02 Pain Level 0 06/08/18 18:39 Comment 06/08/18 19:47 Intake & Output 06/10/18 06/11/18 06/11/18 23:59 11:59 23:59 Intake Total 530 / 1194 240 / 480 240 / 480 Balance 530 / 1008 240 / 480 240 / 480 Weight 97.5 kg Intake: IV 50 / 414 Oral 480 / 780 240 / 480 240 / 480 Other: Urine Color Yellow Urine Appearance Clear Urine Odor Normal Comment INC large incontinence Inc x 1 moderate amount Voiding Methods Diaper Diaper Diaper Incontinent Incontinent Incontinent Laboratory Results WBC 7.41 k/cumm (4.4-10.8) 06/11/18 08:10 RBC 3.16 m/cumm (4.00-5.20) L 06/11/18 08:10 Hgb 8.5 g/dL (12.0-15.5) L 06/11/18 08:10 Hct 27.3 % (36.0-46.0) L 06/11/18 08:10 MCV 86.4 fL (80-95) 06/11/18 08:10 MCH 26.9 pg (27.0-33.0) L 06/11/18 08:10 MCHC 31.1 g/dL (32.0-36.0) L 06/11/18 08:10 RDW 14.5 % (11.7-14.6) 06/11/18 08:10 Plt Count 132 x1000/uL (130-400) 06/11/18 08:10 MPV 10.2 fL (8.0-11.0) 06/11/18 08:10 Immature Gran % 0.4 06/11/18 08:10 Neutrophils % 68.9 06/11/18 08:10 Lymphocytes % 14.7 06/11/18 08:10 Monocytes % 10.0 06/11/18 08:10 Eosinophils % 5.7 06/11/18 08:10 Basophils % 0.3 06/11/18 08:10 Absolute Neutrophils 5.11 k/cumm (1.2-6.7) 06/11/18 08:10 Absolute Lymphocytes 1.09 k/cumm (1.2-3.4) L 06/11/18 08:10 Absolute Monocytes 0.74 k/cumm (0.11-0.7) H 06/11/18 08:10 Absolute Eosinophils 0.42 k/cumm (0.0-0.7) 06/11/18 08:10 Absolute Basophils 0.02 k/cumm (0.0-0.2) 06/11/18 08:10 PT 16.8 sec (9.3-11.0) H 06/11/18 06:40 INR 1.7 (0.9-1.1) H 06/11/18 06:40 Sodium 139 mmol/L (136-145) 06/11/18 08:30 Potassium 5.1 mmol/L (3.5-5.1) 06/11/18 08:30 Chloride 107 mmol/L (98-107) 06/11/18 08:30 Carbon Dioxide 17.1 mmol/L (21.0-32.0) L 06/11/18 08:30 Anion Gap 14.9 mmol/L (3-11) H 06/11/18 08:30 BUN 81 mg/dL (7-18) H* 06/11/18 08:30 Creatinine 4.39 mg/dL (0.55-1.02) H* 02/06/19 08:30 Estimated GFR/1.73 m2 9.83 (mL/min/1.73m2) 06/11/18 08:30 Glucose 186 mg/dL (70-100) H 06/11/18 08:30 Lactate 1.2 mmol/l (0.6-1.4) 06/09/18 07:10 Calcium 8.7 mg/dL (8.5-10.1) 06/11/18 08:30 Magnesium 2.1 mg/dL (1.8-2.4) 06/11/18 06:40 Total Bilirubin 0.3 mg/dL (0.2-1.0) 06/08/18 14:01 AST 14 U/L (15-37) L 06/08/18 14:01 ALT 16 U/L (12-78) 06/08/18 14:01 Alkaline Phosphatase 92 U/L (46-116) 06/08/18 14:01 Troponin I 0.03 ng/mL (0.00-0.06) 06/09/18 07:10 C-Reactive Protein 1.40 mg/dL (0.0-0.3) H 06/11/18 06:40 Total Protein 6.8 g/dL (6.4-8.2) 06/08/18 14:01 Albumin 2.9 g/dL (3.4-5.0) L 06/08/18 14:01 Urine Color Yellow (Yellow) 06/08/18 14:01 Urine Clarity Cloudy 06/08/18 14:01 Urine pH 7.0 (5-8) 06/08/18 14:01 Ur Specific [place] 1.020 (1.005-1.025) 06/08/18 14:01 Urine Protein >=300 mg/dL (Negative) H 06/08/18 14:01 Urine Ketones Negative mg/dL (Negative) 06/08/18 14:01 Urine Blood Trace-intact (Negative) H 06/08/18 14:01 Urine Nitrite Negative (Negative) 06/08/18 14:01 Urine Bilirubin Negative (Negative) 06/08/18 14:01 Urine Urobilinogen 0.2 EU/dL (Up TO 0.2) 06/08/18 14:01 Ur Leukocyte Esterase Moderate (Negative) H 06/08/18 14:01 Urine RBC Negative (0-2) 06/08/18 14:01 Urine WBC >50 HPF (0-5) 06/08/18 14:01 Ur Epithelial Cells Few HPF (Negative) 06/08/18 14:01 Urine Crystals Negative HPF (Negative) 06/08/18 14:01 Urine Bacteria Many HPF (Negative) 06/08/18 14:01 Urine Casts Negative LPF (Negative) 06/08/18 14:01 Urine Mucus Negative (Negative) 06/08/18 14:01 Urine Other Rare renal (Negative) 06/08/18 14:01 Ur Culture Indicated? Yes 06/08/18 14:01 Urine Glucose Negative mg/dL (Negative) 06/08/18 14:01
[2018-06-11] MEDS: LORazepam 0.5 MG TAB 0.25 MG PO (20:39)
[2018-06-11] MEDS: Hydrocortisone 1% CR 30 GM TUBE TP (20:40)
[2018-06-11] MEDS: traZODone 50 MG TAB PO (22:47)
[2018-06-11] MEDS: Mirtazapine 15 MG TAB 7.5 MG PO (22:47)
[2018-06-11] MEDS: Losartan 50 MG TAB PO (22:47)
[2018-06-11 22:51] VITALS: BP 151/62; PULSE 58; RESP 20; TEMP 36.8; O2SAT 95
[2018-06-12] MEDS: Normal Saline Flush 10 ML SYR IVP ×2 (02:08→10:09)
[2018-06-12] MEDS: fentaNYL 12 MCG PATCH TD ×2 (06:32→10:09)
[2018-06-12 07:40] LABS: INR 1.3 (0.9-1.1); Prothrombin Time 12.8 sec (9.3-11.0)
[2018-06-12 07:45] VITALS: BP 151/52; PULSE 56; RESP 18; TEMP 36.1; O2SAT 97
[2018-06-12] MEDS: Carvedilol 6.25 MG TAB 18.75 MG PO (08:50)
[2018-06-12] MEDS: Magnesium Oxide 400 MG TAB PO (10:04)
[2018-06-12] MEDS: Cyanocobalamin 500 MCG TAB 1000 MCG PO (10:05)
[2018-06-12] MEDS: amLODIPine 10 MG TAB PO (10:06)
[2018-06-12] MEDS: Isosorbide Mononitrate 60 MG TABCR PO (10:06)
[2018-06-12] MEDS: LORazepam 0.5 MG TAB 0.25 MG PO (10:06)
[2018-06-12] MEDS: Ferrous Sulfate 325 MG TAB PO (10:07)
[2018-06-12] MEDS: Pantoprazole 40 MG VIAL IVP (10:09)
[2018-06-12] MEDS: Nystatin CREAM 15 GM TUBE TP (10:10)
--- NOTE | 2018-06-12 10:46 | OT.INNT ---
Date of service: 06/12/18 Time of Service: 09:00 Occupational Therapy Notes 06/12/18 OT went to see pt, her eyes were closed and she did not respond to OT's voice. OT was unable to get pt to participate in OT session for today. Jocelyn Torres, OTR/[facility]
--- NOTE | 2018-06-12 11:00 | W.PM.DS.N ---
Date of service: 06/12/18 Time of Service: 11:01 DS: Diagnosis Discharge Diagnosis (1) Toxic metabolic encephalopathy: Status: Acute (2) HCAP (healthcare-associated pneumonia): Status: Acute (3) UTI (urinary tract infection): Status: Acute (4) Hypoglycemia: Status: Resolved (5) PAF (paroxysmal atrial fibrillation): Status: Chronic (6) CKD (chronic kidney disease) stage 5, GFR less than 15 ml/min: Status: Chronic (7) CHF (congestive heart failure): Status: Suspected (8) CAD (coronary artery disease): Status: Chronic (9) Hypertension: Status: Chronic (10) Dyslipidemia: Status: Chronic (11) GERD (gastroesophageal reflux disease): Status: Chronic (12) DVT prophylaxis: Status: Acute (13) Discharge planning issues: Status: Acute Discharge Plan Disposition Patient Disposition: SNF (LEVEL 1) [facility] Condition: Stable Discharge Details Reason For Visit: ALTERED MENTAL STATUS, UTI Admit Date/Time: 06/08/18 17:28 Admit Provider: Elmer Michaud Attending Provider: Elmer Michaud Primary Care Provider: Cheyenne Sanchez Hospital Course Hospital Course: Natalya Arnett is a 73-year-old female, resident of [facility], with a past medical history significant for recurrent UTIs, presented to [facility] Emergency Department on 06/08/18 with altered mental status. She has a past medical history significant for PAF on AC with coumadin, CAD s/p CABG, DM, CKD Stage V, HTN, and dyslipidemia, anemia of chronic disease, obesity, suspected JEFF, reactive airway disease, GERD, and diabetic neuropathy, and probable dementia. She also reportedly had hypoglycemia prior to admission, likely related to poor PO intake. She was also found to have a Klebsiella UTI, for which she was received IV ceftriaxone. She went on to have a chest XR which noted:findings could represent mild CHF or superimposed pneumonia and chronic interstitial changes could also be present. She was initiated on IV vancomycin in addition to the Ceftriaxone to cover for healthcare associated pneumonia. Her mental status improved to her baseline. She was seen by Palliative care for a discussion surrounding goals of care. We will continue this discussion, it was decided that she would return to [facility] and be admitted to hospice care. She was found to be calling out, help frequently. This was reportedly her baseline. She was initiated on lorazepam scheduled as well as a fentanyl patch. She will transition back to [facility] and rehab today. She will be admitted to the [facility] Several of her medications were discontinued while here at the hospital, will leave it up to hospice to determine what other medications will be discontinued. Home Meds and New Rx's Prescriptions: New lorazepam 0.5 mg Tablet 0.25 mg PO TID Qty: 15 RF: 0 fentanyl 12 mcg/hr Patch 72 Hour 12 mcg Transdermal Q72H Qty: 3 RF: 0 Mouthwash [Biotene Mouthwash] 15 ml Mucous Membrane AC Qty: 0 RF: 0 Continued pantoprazole 40 MG tablet,delayed release (DR/EC) 40 mg PO AM RF: 0 nystatin 15 GM cream 15 gm Topical TID RF: 0 PROVENTIL HFA 18 GM HFA.AER.AD 2 puff Inhalation Q6H PRN RF: 0 carvedilol 6.25 MG tablet 18.75 mg PO TID RF: 0 bisacodyl [Dulcolax (bisacodyl)] 10 MG suppository 10 mg RC PRN RF: 0 Fleet Enema 133 ML enema 133 ml RC PRN RF: 0 trazodone 50 mg Tablet 50 mg PO HS RF: 0 hydroxyzine HCl 25 mg Tablet 25 mg PO HS RF: 0 acetaminophen 325 MG tablet 650 mg PO TID RF: 0 isosorbide mononitrate 60 MG tablet extended release 24 hr 60 mg PO BID RF: 0 capsaicin [Trixaicin] 60 GM cream Transdermal QID RF: 0 mirtazapine 15 MG tablet 7.5 mg PO HS RF: 0 calcitriol 0.25 MCG capsule 0.25 mcg PO DIRECTED RF: 0 Discontinued cyanocobalamin (vitamin B-12) 2,500 MCG tablet,chewable 1,000 mcg PO DAILY RF: 0 magnesium hydroxide [Milk of Magnesia] 400 MG/5 ML suspension 30 ml PO PRN RF: 0 losartan 50 MG tablet 50 mg PO HS RF: 0 magnesium oxide 400 MG tablet 400 mg PO DAILY RF: 0 amlodipine 10 MG tablet 10 mg PO DAILY RF: 0 ferrous sulfate 325 MG tablet 325 mg PO BID RF: 0 warfarin [Coumadin] 1 MG tablet 1 - 2 tab PO DIRECTED RF: 0 Humalog KwikPen Insulin 100 UNIT/ML insulin pen 20 unit SQ QAM RF: 0 furosemide [Lasix] 80 MG tablet 60 mg PO BID RF: 0 Discharge Instructions Instructions: Hospice Care (GEN) Activity:: Activity as Tolerated Equipment/Supplies:: No Equipment Needed Diet:: As Tolerated Discharge Orders Discharge Orders: Discharge Order (Routine); Ordered 06/12/18 Ordered By: Shayy Liu Exam Narrative Exam Narrative: General: Awake and alert, appears calm. HEENT: Pupils equal and round, mucous membranes moist. Heart: Heart has regular rate and rhythm, systolic ejection murmur at left sternal border. Lungs: Respirations even and unlabored. GI: abdomen soft, nontender, nondistended Extremities: no e/c/c BLE's DS: Data Vitals/I&O Vitals and I&O: Vital Signs Temperature 36.1 C L 06/12/18 07:45 Temperature Source Tympanic 06/12/18 07:45 Pulse 56 L 06/12/18 07:45 Pulse Rhythm Regular 06/11/18 23:30 Pulse 46 L 06/08/18 18:47 Respiratory Rate 18 06/12/18 07:45 Respiratory Effort Non-Labored 06/11/18 23:30 Respiratory Depth Normal 06/11/18 23:30 Respiratory Pattern Normal 06/11/18 23:30 Blood Pressure 151/52 H 06/12/18 07:45 Blood Pressure Mean 68 06/08/18 18:47 Blood Pressure Position Sitting 06/08/18 13:31 Pulse Oximetry 97 06/12/18 07:45 Oxygen Delivery Method Room Air 06/12/18 07:45 Oxygen Flow Rate 0 06/12/18 07:45 Pain Level 0 06/08/18 18:39 Comment 06/08/18 19:47 Intake & Output 06/11/18 06/11/18 06/12/18 11:59 23:59 11:59 Intake Total 240 / 1920 1680 / 1920 Output Total 550 / 550 Balance 240 / 1920 1680 / 1920 -550 / -550 Weight 97.5 kg 100.2 kg Intake: IV 1200 / 1200 Oral 240 / 720 480 / 720 Output: Urine 550 / 550 Other: Urine Color Yellow Yellow Yellow Urine Appearance Clear Cloudy Cloudy Urine Odor Normal Normal Comment large incontinence very cloudy urine return in merino Voiding Methods Diaper Diaper Incontinent Incontinent Completed studies during hospitalization [Text1]: 06/08/2018: NONCONTRAST HEAD CT: Comparison is made with 06 October 2017. No intracranial hemorrhage, mass or infarct is seen. There is no evidence of skull fracture. There is mild atrophy. The ventricles are within normal limits in size. There are patchy areas of decreased attenuation in the white matter, consistent with small vessel disease. The sinuses and mastoid air cells appear clear where visualized. IMPRESSION: Atrophy and mild small vessel changes. No acute abnormality is seen. 06/09/2018: PORTABLE CHEST: Comparison is made with 16 October 2017. The heart is enlarged. The patient is status post CABG and coronary artery stents. Sternal wires are seen. Evaluation of the lungs is limited by poor pulmonary inflation and respiratory motion. Mildly increased pulmonary densities and interstitial markings are seen. The findings could represent mild CHF or superimposed pneumonia and chronic interstitial changes could also be present. Clinical correlation is recommended. Labs on day of discharge: Labs from last 24 hours 06/12/18 06/11/18 07:00 08:30 PT 12.8 H INR 1.3 H Sodium 139 Potassium 5.1 Chloride 107 Carbon Dioxide 17.1 L Anion Gap 14.9 H BUN 81 H* Creatinine 4.39 H* Estimated GFR/1.73 m2 9.83 Glucose 186 H Calcium 8.7 Preliminary micro results at discharge 06/08/18 18:32 Blood Culture - Preliminary Blood NO GROWTH 72 HOURS 06/08/18 18:10 Blood Culture - Preliminary Blood NO GROWTH 72 HOURS PFS Medical History Palliative care patient (Chronic) Altered mental status (Acute) Weakness (Chronic) Surgical History Colonoscopy - MAC (01/23/16) EGD - MAC (01/23/16) Social History caregiver/support person: Yes household members: other housing: halfway marital status: lives independently: No number of children: 4 halfway: Yes current occupational status: retired pets and animals: No well-balanced diet: about half the time eating out: rarely or never reads food labels: seldom or never during the past year weight has: decreased > 10 lbs Smoking/Tobacco Use Status: Never agree to transfusion: Yes
--- NOTE | 2018-06-12 11:24 | NUR.NOTE ---
Nursing Note: report given to Lety Pruett LPN at [facility] @ [id number]
--- NOTE | 2018-06-12 15:38 | PDOC.CMDIS ---
- If Service Date Differs Date of service: 06/12/18 Time of Service: 15:38 LACE Index Scoring Tool - Questions: Length of Stay (in days): 3 Acuity (Admit via E.D.?): Yes Comorbidities: Diabetes w/o Complication, Dementia E.D. Visits: 2 - Answers: Total Score: 13 Risk of Readmission: High Risk Care Management Discharge Reason for Hospitalization: AMS, UTI Discharge Plan: [facility] will be [facility] to [facility]ospice services. CM coordianted transportation via [employer]. Home Health will admit patient to hospice this afternoon. CM updated [facility] admission director and faxed all updated paperwork and discharge summary to the [facility], and [facility]. Patient/Family Education Needs: Discharge plan, education to patient and family. Services Needed at Discharge: Home Health Care Services, Assisted Facility, Transportation
--- NOTE | 2018-06-12 15:48 | CMDISCH_ITS ---
- If Service Date Differs Date of service: 06/12/18 Time of Service: 15:38 LACE Index Scoring Tool - Questions: Length of Stay (in days): 3 Acuity (Admit via E.D.?): Yes Comorbidities: Diabetes w/o Complication, Dementia E.D. Visits: 2 - Answers: Total Score: 13 Risk of Readmission: High Risk Care Management Discharge Reason for Hospitalization: AMS, UTI Discharge Plan: Natalya will be discharged to [facility] today to Hospice services. CM coordianted transportation via [employer]. Home Health will admit patient to hospice this afternoon. CM updated [facility] admission director and faxed all updated paperwork and discharge summary to the [facility], and [facility]. Patient/Family Education Needs: Discharge plan, education to patient and family. Services Needed at Discharge: Home Health Care Services, Long Term Facility, Transportation
--- NOTE | 2018-06-12 15:50 | NUR.NOTE ---
Nursing Note: At 0830 this morning, a fentanyl patch 12 mcg was found under patient's fingernail and another fentanyl 12 mcg patch was found on patient's gown. These patches were removed from patient's room and wasted at the nurse's station with Yu Cohn RN. A new fentanyl 12 mcg patch applied to patient's upper L back, tegaderm applied over patch. Just prior to patient transferring to [facility], this nurse and Josselyn Holman RN, verified patch placement.
== END 2018-06-12 12:01 | disposition skilled nursing facility (03) | DRG 91 ==
LOC: ER 18:26 → MS 18:58
PROVIDERS: Admitting Provider Internal Medicine; Emergency Provider Emergency Medicine; PCP Student in an Organized Health Care Education/Training Program; Visit Provider Internal Medicine
DX: G92 Toxic encephalopathy (principal); J18.9 Pneumonia, unspecified organism; N39.0 Urinary tract infection, site not specified; N18.5 Chronic kidney disease, stage 5; I12.0 Hypertensive chronic kidney disease with stage 5 chronic kidney disease or end stage renal disease; N17.9 Acute kidney failure, unspecified; Y95 Nosocomial condition; R94.31 Abnormal electrocardiogram [ECG] [EKG]; B96.1 Klebsiella pneumoniae [K. pneumoniae] as the cause of diseases classified elsewhere; E11.649 Type 2 diabetes mellitus with hypoglycemia without coma; E11.42 Type 2 diabetes mellitus with diabetic polyneuropathy; E11.22 Type 2 diabetes mellitus with diabetic chronic kidney disease; Z87.440 Personal history of urinary (tract) infections; I25.10 Atherosclerotic heart disease of native coronary artery without angina pectoris; Z79.4 Long term (current) use of insulin; Z95.1 Presence of aortocoronary bypass graft; I50.9 Heart failure, unspecified; I48.0 Paroxysmal atrial fibrillation; Z79.01 Long term (current) use of anticoagulants; E78.5 Hyperlipidemia, unspecified; D63.1 Anemia in chronic kidney disease; F03.90 Unspecified dementia, unspecified severity, without behavioral disturbance, psychotic disturbance, mood disturbance, and anxiety; K21.9 Gastro-esophageal reflux disease without esophagitis; R13.12 Dysphagia, oropharyngeal phase
CPT/HCPCS: 36410; 36415; 80048; 80053; 87040; 87077; 87081; 92610; 93005; 96361; 96365; 97163; 97167; 97535; 99222; 99232; 99233; 99239; 99254; 99285; 70450; 71045; 81003; 81015; 83605; 83735; 84484; 85025; 85610; 86140; 87086; 87186; 93010; 99238; J0696; J1630; J3490